=== PATIENT | female | born 1960 | race Caucasian/White ===

== ENCOUNTER 2020-11-28 12:13 | Inpatient (IN) | payer OTHER ==
[~2020-11-28] VITALS: Ht 172.7 cm; Wt 55.9 kg
[2020-11-28] MEDS ORDERED: TRES1INJ SC (13:04)
[2020-11-28] MEDS ORDERED: AMIT100TA PO (13:04)
[2020-11-28] MEDS ORDERED: NS 500 ML IV ONE (13:05)
[2020-11-28] MEDS ORDERED: NS 1,000 ML IV SCH (13:05)
[2020-11-28] MEDS ORDERED: HumuLIN R (REGULAR) INSULIN (NovoLIN R) **100U/ML** PER UNIT IV ONE (13:25)
[2020-11-28] MEDS ORDERED: METOCLOPRAMIDE INJ 10MG/2ML VIAL (J2765 PER 1) IV ONE (13:30)
--- NOTE | 2020-11-28 13:35 | REP ---
INDICATION: vomiting; SOB COMPARISON: None. TECHNIQUE: Frontal view of the chest and abdomen/pelvis with cross-table view of the abdomen FINDINGS: Frontal view of the chest demonstrates no acute cardiopulmonary process. Supine and cross-table lateral views of the abdomen to pelvis demonstrate nonspecific bowel gas pattern without obstruction or perforation. IMPRESSION: Nonspecific bowel gas pattern. <Electronically signed by Randell Rodriguez > 11/28/20 [id number]
[2020-11-28 14:00] LABS: BASO # 0.1 10^3/uL (0.0-0.2); BASO % 0.2 % (0.0-1.0); HEMATOCRIT 38.6 % (36.0-47.0); HEMOGLOBIN 12.8 g/dl (12.0-15.5); LYMPH # 1.7 10^3/uL (1.5-5.0); LYMPH % 5.7 % (24.0-44.0); MEAN CORPUSCULAR HEMOGLOBIN 29.4 pg (27.0-33.0); MEAN CORPUSCULAR HGB CONC 33.2 g/dl (32.0-36.5); MEAN CORPUSCULAR VOLUME 88.5 fl (80.0-96.0); MONO # 1.8 10^3/uL (0.0-0.8); MONO % 6.1 % (2.0-8.0); NEUTROPHILS # 25.7 10^3/uL (1.5-8.5); NEUTROPHILS % 86.9 % (36.0-66.0); PLATELET COUNT, AUTOMATED 302 10^3/uL (150-450); RED BLOOD COUNT 4.36 10^6/uL (4.00-5.40); WHITE BLOOD COUNT 29.6 10^3/uL (4.0-10.0)
[2020-11-28 14:07] LABS: ABG BASE EXCESS -16.5 (-2.0-2.0); ABG HCO3 8.5 MEQ/L (22.0-26.0); ABG O2 SATURATION 98.1 % (95.0-99.0); ABG PARTIAL PRESSURE O2 120.2 mmHg (75.0-100.0); ABG STANDARD HCO3 12.1 MEQ/L (22.0-26.0); ABG TOTAL CO2 9.1 MEQ/L (22.0-29.0)
[2020-11-28 14:10] LABS: ABG pH (ARTERIAL) 7.249 UNITS (7.350-7.450)
[2020-11-28 14:11] LABS: ABG PARTIAL PRESSURE CO2 19.9 mmHg (35.0-45.0)
[2020-11-28 14:22] LABS: HEMOGLOBIN A1c 12.5 %
[2020-11-28 14:26] LABS: OSMOLALITY SERUM 349 MOSM/KG (275-295)
[2020-11-28 14:45] LABS: ACETONE/KETONE > 46.00 MG/DL (<2.81); ALBUMIN 3.8 GM/DL (3.2-5.2); ALT/SGPT 20 U/L (12-78); BILIRUBIN,DIRECT 0.1 MG/DL (0.0-0.2); BILIRUBIN,TOTAL 0.6 MG/DL (0.2-1.0); BLOOD UREA NITROGEN 50 MG/DL (7-18); CALCIUM LEVEL 9.3 MG/DL (8.5-10.1); CARBON DIOXIDE LEVEL 13 MEQ/L (21-32); CHLORIDE LEVEL 98 MEQ/L (98-107); CPK CREATINE PHOSPHOKINASE 54 U/L (26-192); CREATININE FOR GFR 1.26 MG/DL (0.55-1.30); ETHYL ALCOHOL (ETHANOL) < 0.003 % (0.000-0.010); GLOMERULAR FILTRATION RATE 46.4 (>51); GLUCOSE, FASTING 568 MG/DL (70-100); LIPASE 345 U/L (73-393); MAGNESIUM LEVEL 2.5 MG/DL (1.8-2.4); MB/CK RELATIVE INDEX 1.85 (< OR =4); PHOSPHORUS LEVEL 4.7 MG/DL (2.5-4.9); POTASSIUM SERUM 4.9 MEQ/L (3.5-5.1); SODIUM LEVEL 137 MEQ/L (136-145); TOTAL PROTEIN 7.7 GM/DL (6.4-8.2); TROPONIN I < 0.02 NG/ML (< 0.10)
[2020-11-28 14:54] LABS: RSV AMPLIFICATION NEGATIVE (NEGATIVE)
[2020-11-28] MEDS ORDERED: LEVO250T12 PO (15:49)
[2020-11-28] MEDS ORDERED: PRED10TA2 PO (15:49)
[2020-11-28] MEDS ORDERED: INSULIN REGULAR IN 0.9 % NACL 100 UNIT in IV 1 EA IV SCH ×4 (16:00→23:30)
[2020-11-28] MEDS ORDERED: INSULIN IV RATE CHANGE DOCUMENTATION ML/HR XX SCH (16:00)
[2020-11-28] MEDS ORDERED: ALBUTEROL 90 MCG/ACT 8GM HFA INHALER INH PRN ×2 (16:30→18:37)
[2020-11-28 16:40] LABS: AMPHETAMINES LEVEL URINE NEGATIVE (NEGATIVE); BARBITURATES URINE NEGATIVE (NEGATIVE); BENZODIAZEPINES URINE NEGATIVE (NEGATIVE); CANNABINOIDS URINE NEGATIVE (NEGATIVE); COCAINE METABOLITE URINE NEGATIVE (NEGATIVE); METHADONE URINE NEGATIVE (NEGATIVE); OPIATES URINE NEGATIVE (NEGATIVE); PHENCYCLIDINE URINE NEGATIVE (NEGATIVE)
--- OUTSIDE RECORDS SUMMARY | 2020-11-28 16:54 | CCD ---
Author Author [facility] Organization [facility] Address Unknown Phone Unavailable Care Team Providers Care Assessor Name Role Phone Susanne Porter MD Unavailable Unavailable Susanne Porter MD Unavailable Unavailable Susanne Porter MD Unavailable Unavailable Susanne Porter MD Unavailable Unavailable Susanne Porter MD Unavailable Unavailable Susanne Porter MD Unavailable Unavailable Susanne Porter MD Unavailable Unavailable Susanne Porter MD Unavailable Unavailable Susanne Porter MD Unavailable Unavailable Susanne Porter MD Unavailable Unavailable Susanne Porter MD Unavailable Unavailable Susanne Porter MD Unavailable Unavailable Susanne Porter MD Unavailable Unavailable Susanne Porter MD Unavailable Unavailable Susanne Porter MD Unavailable Unavailable Susanne Porter MD Unavailable Unavailable Susanne Porter MD Unavailable Unavailable Susanne Porter MD Unavailable Unavailable Susanne Porter MD Unavailable Unavailable Susanne Porter MD Unavailable Unavailable Susanne Porter MD Unavailable Unavailable Susanne Porter MD Unavailable Unavailable Susanne Porter MD Unavailable Unavailable Susanne Proter MD Unavailable Unavailable Susanne Porter MD Unavailable Unavailable Susanne Porter MD Unavailable Unavailable Susanne Porter MD Unavailable Unavailable Susanne Porter MD Unavailable Unavailable Susanne Porter MD Unavailable Unavailable Susanne Porter MD Unavailable Unavailable Susanne Porter MD Unavailable Unavailable Susanne Porter MD Unavailable Unavailable Susanne Porter MD Unavailable Unavailable Susanne Porter MD Unavailable Unavailable Susanne Porter MD Unavailable Unavailable Susanne Porter MD Unavailable Unavailable Susanne Porter MD Unavailable Unavailable Susanne Porter MD Unavailable Unavailable Susanne Porter MD Unavailable Unavailable Susanne Porter MD Unavailable Unavailable Susanne Porter MD Unavailable Unavailable Susanne Porter MD Unavailable Unavailable CharlotteSusanne MD Unavailable Unavailable CharlotteSusanne MD Unavailable Unavailable Susanne Porter MD Unavailable Unavailable Susanne Porter MD Unavailable Unavailable Susanne Porter MD Unavailable Unavailable Susanne Porter MD Unavailable Unavailable Susanne Porter MD Unavailable Unavailable Susanne Porter MD Unavailable Unavailable Susanne Porter MD Unavailable Unavailable Susanne Porter MD Unavailable Unavailable Susanne Porter MD Unavailable Unavailable Martínez Pringle RN MS TESTING MACHINE OPERATOR CDE Unavailable Unavailabl Martínez Mendoza RN MS TESTING MACHINE OPERATOR CDE Unavailable Unavailabl Martínez Mendoza RN MS TESTING MACHINE OPERATOR CDE Unavailable Unavailabl Martínez Mendoza RN MS TESTING MACHINE OPERATOR CDE Unavailable Unavailabl Martínez Mendoza RN MS TESTING MACHINE OPERATOR CDE Unavailable Unavailabl Martínez Mendoza RN MS TESTING MACHINE OPERATOR CDE Unavailable Unavailabl Martínez Mendoza RN MS TESTING MACHINE OPERATOR CDE Unavailable Unavailabl Martínez Mendoza RN MS TESTING MACHINE OPERATOR CDE Unavailable Unavailabl Martínez Mendzoa RN MS TESTING MACHINE OPERATOR CDE Unavailable Unavailabl Martínez Mendoza RN MS TESTING MACHINE OPERATOR CDE Unavailable Unavailabl Martíenz Mendoza RN MS TESTING MACHINE OPERATOR CDE Unavailable Unavailabl Martínez Mendoza RN MS TESTING MACHINE OPERATOR CDE Unavailable Unavailabl Martínez Mendoza RN MS TESTING MACHINE OPERATOR CDE Unavailable Unavailabl Martínez Mendoza RN MS TESTING MACHINE OPERATOR CDE Unavailable Unavailabl Martínez Mendoza RN MS TESTING MACHINE OPERATOR CDE Unavailable Unavailabl Martínez Mendoza RN MS TESTING MACHINE OPERATOR CDE Unavailable Unavailabl Martínez Mendoza RN MS TESTING MACHINE OPERATOR CDE Unavailable Unavailabl Martínez Mendoza RN MS TESTING MACHINE OPERATOR CDE Unavailable Unavailabl Martínez Mendoza RN MS TESTING MACHINE OPERATOR CDE Unavailable Unavailabl Martínez Mendoza RN MS TESTING MACHINE OPERATOR CDE Unavailable Unavailabl susanne Pringle, Martínez Luna RN MS TESTING MACHINE OPERATOR CDE Unavailable Unavailabl susanne Pringle, Martínez Luna RN MS TESTING MACHINE OPERATOR CDE Unavailable Unavailabl susanne Pringle, Martínez Luna RN MS TESTING MACHINE OPERATOR CDE Unavailable Unavailabl e Pino, Martínez Luna RN MS TESTING MACHINE OPERATOR CDE Unavailable Unavailabl e Pino, Martínez Luna RN MS TESTING MACHINE OPERATOR CDE Unavailable Unavailabl e Pino, Martínez Luna RN MS TESTING MACHINE OPERATOR CDE Unavailable Unavailabl e Pino, Martínez Luna RN MS TESTING MACHINE OPERATOR CDE Unavailable Unavailabl e Pino, Martínez Luna RN MS TESTING MACHINE OPERATOR CDE Unavailable Unavailabl e Pino, Martínez Luna RN MS TESTING MACHINE OPERATOR CDE Unavailable Unavailabl e Martínez Pringle RN MS TESTING MACHINE OPERATOR CDE Unavailable Unavailabl e Martínez Pringle RN MS TESTING MACHINE OPERATOR CDE Unavailable Unavailabl e Martínez Pringle RN MS TESTING MACHINE OPERATOR CDE Unavailable Unavailabl e Pino, Martínez Luna RN MS TESTING MACHINE OPERATOR CDE Unavailable Unavailabl e Martínez Pringle RN MS TESTING MACHINE OPERATOR CDE Unavailable Unavailabl e Martínez Pringle RN MS TESTING MACHINE OPERATOR CDE Unavailable Unavailabl susanne Pringle, Martínez Luna RN MS TESTING MACHINE OPERATOR CDE Unavailable Unavailabl susanne Pringle, Martínez Luna RN MS TESTING MACHINE OPERATOR CDE Unavailable Unavailabl Martínez Mendoza RN MS TESTING MACHINE OPERATOR CDE Unavailable Unavailabl Martínez Mendoza RN MS TESTING MACHINE OPERATOR CDE Unavailable Unavailabl Martínez Mendoza RN MS TESTING MACHINE OPERATOR CDE Unavailable Unavailabl Martínez Mendoza RN MS TESTING MACHINE OPERATOR CDE Unavailable Unavailabl Martínez Mendoza RN MS TESTING MACHINE OPERATOR CDE Unavailable Unavailabl Martínez eMndoza RN MS TESTING MACHINE OPERATOR CDE Unavailable Unavailabl Martínez Mendoza RN MS TESTING MACHINE OPERATOR CDE Unavailable Unavailabl Martínez Mendoza RN MS TESTING MACHINE OPERATOR CDE Unavailable Unavailabl Martínez Mendoza RN MS TESTING MACHINE OPERATOR CDE Unavailable Unavailabl Martínez Mendoza RN MS TESTING MACHINE OPERATOR CDE Unavailable Unavailabl Martínez Mendoza RN MS TESTING MACHINE OPERATOR CDE Unavailable Unavailabl Martínez Mendoza RN MS TESTING MACHINE OPERATOR CDE Unavailable Unavailabl Martínez Mendoza RN MS TESTING MACHINE OPERATOR CDE Unavailable Unavailabl susanne Pringle, Martínez Luna RN MS TESTING MACHINE OPERATOR CDE Unavailable Unavailabl susanne Pino, Martínez Luna RN MS TESTING MACHINE OPERATOR CDE Unavailable Unavailabl susanne Pringle, Martínez Cheryl RN MS TESTING MACHINE OPERATOR CDE Unavailable Unavailabl susanne Pino, Martínez Molinala RN MS TESTING MACHINE OPERATOR CDE Unavailable Unavailabl susanne Pringle, Martínez Luna RN MS TESTING MACHINE OPERATOR CDE Unavailable Unavailabl susanne Pringle, Martínez Luna RN MS TESTING MACHINE OPERATOR CDE Unavailable Unavailabl susanne Pino, Martínez Molinala RN MS TESTING MACHINE OPERATOR CDE Unavailable Unavailabl susanne Pringle, Martínez Molinala RN MS TESTING MACHINE OPERATOR CDE Unavailable Unavailabl susanne Pringle, Martínez Luna RN MS TESTING MACHINE OPERATOR CDE Unavailable Unavailabl susanne Pringle, Martínez Luna RN MS TESTING MACHINE OPERATOR CDE Unavailable Unavailabl e Susanne Porter MD Unavailable Unavailable CharlotteSusanne MD Unavailable Unavailable CharlotteSusanne MD Unavailable Unavailable CharlotteSusanne MD Unavailable Unavailable CharlotteSusanne MD Unavailable Unavailable CharlotteSusanne MD Unavailable Unavailable CharlotteSusanne MD Unavailable Unavailable CharlotteSusanne MD Unavailable Unavailable CharlotteSusanne MD Unavailable Unavailable CharlotteSusanne MD Unavailable Unavailable CharlotteSusanne MD Unavailable Unavailable CharlotteSusanne MD Unavailable Unavailable CharlotteSusanne MD Unavailable Unavailable CharlotteSusanne MD Unavailable Unavailable CharlotteSusanne MD Unavailable Unavailable CharlotteSusanne MD Unavailable Unavailable CharlotteSusanne MD Unavailable Unavailable CharlotteSusanne MD Unavailable Unavailable CharlotteSusanne MD Unavailable Unavailable CharlotteSusanne MD Unavailable Unavailable CharlotteSusanne MD Unavailable Unavailable CharlotteSusanne MD Unavailable Unavailable CharlotteSusanne MD Unavailable Unavailable CharlotteSusanne MD Unavailable Unavailable CharlotteSusanne MD Unavailable Unavailable CharlotteSusanne MD Unavailable Unavailable Susanne Porter MD Unavailable Unavailable CharlotteSusanne MD Unavailable Unavailable Susanne Porter MD Unavailable Unavailable CharlotteSusanne MD Unavailable Unavailable CharlotteSusanne MD Unavailable Unavailable Charlotte, E Rebecca MD Unavailable Unavailable Charlotte, E Rebecca MD Unavailable Unavailable Charlotte, E Rebecca MD Unavailable Unavailable Charlotte, E Rebecca MD Unavailable Unavailable Charlotte, E Rebecca MD Unavailable Unavailable Charlotte, E Rebecca MD Unavailable Unavailable Charlotte, E Rebecca MD Unavailable Unavailable Charlotte, E Rebecca MD Unavailable Unavailable Charlotte, E Rebecca MD Unavailable Unavailable Charlotte, E Rebecca MD Unavailable Unavailable Charlotte, E Rebecca MD Unavailable Unavailable Charlotte, E Rebecca MD Unavailable Unavailable Charlotte, E Rebecca MD Unavailable Unavailable Charlotte, E Erbecca MD Unavailable Unavailable Charlotte, E Rebecca MD Unavailable Unavailable Charlotte, E Rebecca MD Unavailable Unavailable Charlotte, E Rebecca MD Unavailable Unavailable Charlotte, E Rebecca MD Unavailable Unavailable Charlotte, E Rbeecca MD Unavailable Unavailable Charlotte, E Rebecca MD Unavailable Unavailable Charlotte, E Rebecca MD Unavailable Unavailable Charlotte, E Rebecca MD Unavailable Unavailable Remi, D Dillon PA Unavailable Unavailable Remi, D Dillon PA Unavailable Unavailable Remi, D Dillon PA Unavailable Unavailable Remi, D Dillon PA Unavailable Unavailable Remi, D Dillon PA Unavailable Unavailable Remi, D Dillon PA Unavailable Unavailable Remi, D Dillon PA Unavailable Unavailable Remi, D Dillon PA Unavailable Unavailable Remi, D Dillon PA Unavailable Unavailable Remi, D Dillon PA Unavailable Unavailable Remi, D Dillon PA Unavailable Unavailable Remi, D Dillon PA Unavailable Unavailable Remi, D Dillon PA Unavailable Unavailable Remi, D Dillon PA Unavailable Unavailable Remi, D Dillon PA Unavailable Unavailable Remi, D Dillon PA Unavailable Unavailable Remi, D Dillon PA Unavailable Unavailable Remi, D Dillon PA Unavailable Unavailable Remi, D Dillon PA Unavailable Unavailable Remi, D Dillon PA Unavailable Unavailable Remi, D Dillon PA Unavailable Unavailable Remi, D Dillon PA Unavailable Unavailable Remi, D Dillon PA Unavailable Unavailable Remi, D Dillon PA Unavailable Unavailable Remi, D Dillon PA Unavailable Unavailable Re-disclosure Warning The records that you are about to access may contain information from federally-assisted alcohol or drug abuse programs. If such information is present, then the following federally mandated warning applies: This information has been disclosed to you from records protected by federal confidentiality rules (42 CFR part 2). The federal rules prohibit you from making any further disclosure of this information unless further disclosure is expressly permitted by the written consent of the person to whom it pertains or as otherwise permitted by 42 CFR part 2. A general authorization for the release of medical or other information is NOT sufficient for this purpose. The Federal rules restrict any use of the information to criminally investigate or prosecute any alcohol or drug abuse patient.The records that you are about to access may contain highly sensitive health information, the redisclosure of which is protected by Article 27-F of the [facility] Public Health law. If you continue you may have access to information: Regarding HIV / AIDS; Provided by facilities licensed or operated by the [facility] Office of Mental Health; or Provided by the [facility] Office for People With Developmental Disabilities. If such information is present, then the following [facility] mandated warning applies: This information has been disclosed to you from confidential records which are protected by state law. State law prohibits you from making any further disclosure of this information without the specific written consent of the person to whom it pertains, or as otherwise permitted by law. Any unauthorized further disclosure in violation of state law may result in a fine or mcc sentence or both. A general authorization for the release of medical or other information is NOT sufficient authorization for further disc losure. Allergies and Adverse Reactions Type Description Substance Reaction Status Data Source(s ) Allergy to substance No Known Allergies No known allergies (situation ) [facility]) Allergy to substance No Known Allergies No known allergies (situation ) [facility]) Drug Allergy Drug Allergy NKDA [facility] ([facility]) Encounters Encounter Providers Location Date Indications Data Source(s ) Outpatient<td ID="encounterTypeDescripti onID0">Flu Shot Adult</td><td>D[facility] Khalil [facility]</td[facility]td[facility]/29/[facility]</td><td>11:06AM</td><td>11:18AM</td><td></td> [facility] 11:06:00 A M EDT - 11/29/2019 11:18:24 AM EDT CHRISTIANO ([facility]) Outpatient Attender: Cheryl Pringle RN MS TESTING MACHINE OPERATOR CDE [facility] 10/25/2019 02:20:00 PM EDT ELIZABETH [facility] Out[facility] Attender: Rebecca Porter MD 10/05/2019 05:44:00 PM EDT PAP [facility] Outpatient<td ID="encounterTypeDescripti onID1">ANNUAL PE-followup exam/</td><td>Rebecca Porter MD</td><td>[facility], [facility]</td><td>10/05/2019</td><td>2:32PM</td><td>3:16PM</td><td><content ID="encounterDiagnosisID1-0">Routine Gynecological Exam</content>, <content ID="encounterDiagnosisID1-1">Nicotine-related Disorders</content>, <content ID="encounterDiagnosisID1-2">Anorexia Nervosa</content>, <content ID="encounterDiagnosisID1-3">Routine History and Physical Adult (18 - 64 Yrs)</content>, <content ID="encounterDiagnosisID1-4">Diabetes Mellitus Type 1 - Uncontrolled</content>, <content ID="encounterDiagnosisID1-5">Diabetes Mellitus Diabetic Peripheral Neuropathy Type 1</content>, <content ID="encounterDiagnosisID1-6">Discharge of Nipple</content>, <content ID="encounterDiagnosisID1-7">Panic Disorder Without Agoraphobia with Panic Attacks</content>, <content ID="encounterDiagnosisID1-8">Herpes Simplex Type I</content></td> Attender: Rebecca Porter MD [facility] 10/05/2019 02:32:00 PM EDT - 10/05/2019 03:16:00 PM EDT Herpes Simplex Type IRoutine History and Physical Adult (18 - 64 Yrs)Nicotine-related DisordersRoutine Gynecological ExamHerpes Simplex Type IRoutine History and Physical Adult (18 - 64 Yrs)Nicotine-related DisordersRoutine Gynecological Exam Panic Disorder Without Agoraphobia with Panic AttacksPanic Disorder Without Agoraphobia with Panic AttacksDischarge of NippleDischarge of NippleDiabetes Mellitus Type 1 - UncontrolledDiabetes Mellitus Type 1 - UncontrolledDiabetes Mellitus Diabetic Peripheral Neuropathy Type 1Anorexia NervosaDiabetes Mellitus Diabetic Peripheral Neuropathy Type 1Anorexia Nervosa SHARON ([facility]) Herpes Simplex Type I Routine History and Physical Adult (18 - 64 Yrs) Nicotine-related Disorders Routine Gynecological Exam Herpes Simplex Type I Routine History and Physical Adult (18 - 64 Yrs) Nicotine-related Disorders Routine Gynecological Exam Panic Disorder Without Agoraphobia with Panic Attacks Panic Disorder Without Agoraphobia with Panic Attacks Discharge of Nipple Discharge of Nipple Diabetes Mellitus Type 1 - Uncontrolled Diabetes Mellitus Type 1 - Uncontrolled Diabetes Mellitus Diabetic Peripheral Ne uropathy Type 1 Anorexia Nervosa Diabetes Mellitus Diabetic Peripheral Ne uropathy Type 1 Anorexia Nervosa Immunizations Vaccine Date Status Description Data Source(s) COVID-19 VACCINE Moderna 06/20/2020 12:00:00 AM EDT completed [facility] Vaccine Series Complete: YESThis Data wa s Submitted to [facility] [employer]. COVID-19 VACCINE Moderna 05/23/2020 12:00:00 AM EDT completed [facility]SIIS Vaccine Series Complete: NOThis Data was Submitted to [facility] [employer]. IIV3. This is one of two codes replacing CVX 15, which is being retired. 11/29/2019 12:20:00 PM EDT completed <td ID="Otwtavqeiqnsr-Qivzytihkhr-OJ3">Influenza, seasonal, injectable</td><td ID="ImmunizationDose-0">1</td><td>11/29/2019</td><td ID="Bewtydmlpyqgf-VfyxgIual-KY7">Left Deltoid</td><td></td><td ID="Hgtcxthyzidwc-Fbsrmb-WX5">Complete (Administered)</td><td>[facility]</td><td ID="Anzqwlwbrnfxp-Yfcge-Bcuy-Comment-ID0"></td> [facility]ARON ([facility]) Medications Medication Brand Name Start Date Product Form Dose Route Admi nistrative Instructions Pharmacy Instructions Status Indications Reaction Description Data Source(s) Trazodone Hydrochloride 100 MG Oral Tablet traZODone H Cl 100 MG Oral Tablet traZODone HCl 100 MG Oral Tablet 11/11/2019 12:00:00 AM EDT active trazodone hydrochloride 100 MG Oral Tablet CHRISTIANO ([facility]) Freestyle Elvis 14 Day/Sensor/Flash Monitoring System 10/25/2019 12:00:00 AM EDT active [facility] ([facility]) Freestyle Elvis 14 Day/[place]/Flash Monitoring System 10/25/2019 12:00:00 AM EDT active [facility] ([facility]) Baqsimi Two Pack Baqsimi Two Pack 10/25/2019 12:00:00 AM EDT active [facility]) pregabalin 50 MG Oral Capsule [Lyrica] Lyrica 50 MG Or al Capsule Lyrica 50 MG Oral Capsule 10/05/2019 12:00:00 AM EDT activ e pregabalin 50 MG Oral Capsule [Lyrica] SHARON ([facility]) Acyclovir 400 MG Oral Tablet Acyclovir 400 MG Oral Tablet 12:00:00 AM EDT 1 active acyclovir 400 MG Oral Tablet SHARON ([facility]) Trazodone Hydrochloride 100 MG Oral Tablet traZODone H Cl 100 MG Oral Tablet traZODone HCl 100 MG Oral Tablet 08/12/2019 12:00:00 AM EDT 1 aborted trazodone hydrochloride 100 MG Oral Tablet SHARON ([facility]) pregabalin 50 MG Oral Capsule [Lyrica] Lyrica 50 MG Or al Capsule Lyrica 50 MG Oral Capsule 04/27/2019 12:00:00 AM EDT abort ed pregabalin 50 MG Oral Capsule [Lyrica] SHARON ([facility]) atorvastatin 10 MG Oral Tablet Atorvastatin Calcium 10 MG Oral Tablet Atorvastatin Calcium 10 MG Oral Tablet 03/30/2019 12:00:00 AM EST active [facility]vastatin 10 MG [facility] Insurance Providers Payer name Policy type / Coverage type Policy ID Covered constitution party ID Covered constitution party's relationship to liu Policy Liu [facility] 0 [id number] Self 0 MVP [id number] Self [id number] [facility] Other 0 [id number] Self 0 [employer] [place] Other 0 [id number] Self 0 [employer] Health Plan [facility] Other 0 [id number] Self 0 [employer] P [id number] S [id number] RENETTA VIERA PHY [id number] SP [id number] [employer] [id number] SP [id number] Problems, Conditions, and Diagnoses Code Display Name Description Problem Type Effective Dates Data Source(s) 305.1 Nicotine-related Disorders Nicotine-related Disorders Problem 10/05/2019 05:16:00 PM [facility] ([facility]) 305.1 Nicotine-related Disorders Nicotine-related Disorders Problem 10/05/2019 05:16:00 PM [facility] ([facility]) Surgeries/Procedures Procedure Description Date Indications Data Source(s) Venipuncture (routine) Venipuncture (routine) 10/05/2019 12:00:00 A M Libby SHARON ([facility]) HgbA1C HgbA1C 10/05/2019 12:00:00 AM Libby MCCORMACK ([facility]) Cervical or vaginal cancer screening; pelvic and clini chance breast examination pelvic exam & Breast check 10/05/2019 12:00:[address] [facility] ([facility]) Screening papanicolaou smear; obtaining, preparing and conveyance of cervical or vaginal smear to laboratory pap smear colllection 10/05/2019 12:00:00 AM [facility] ([facility]) Brief Emotional Behavior Assessment (Distinct Seperate service-same day) Brief Emotional Behavior Assessment (Distinct Seperate service-same day) 10/05/2019 12:00:00 AM [facility] ([facility]) CMP-Complete Metabolic Profile CMP-Complete Metabolic Profil e 10/05/2019 12:00:00 AM [facility] ([facility]) Brief Emotional Behavior Assessment Brief Emotional Behavior Assessment 10/05/2019 12:00:00 AM [facility] ([facility]) Screening papanicolaou smear; obtaining, preparing and conveyance of cervical or vaginal smear to laboratory pap smear colllection 10/05/2019 12:00:00 AM [facility] ([facility]) Cervical or vaginal cancer screening; pelvic and clini chance breast examination pelvic exam & Breast check 10/05/2019 12:00:00 AM EDT LAFAYETTEW AY ([facility]) Results ID Date Data Source [id number] 10/05/2019 03:21:00 PM EDT SHARON ([facility]) Name Value Range Interpretation Code Description Data Candis rce(s) Supporting Document(s) Hemoglobin A1c/Hemoglobin.total in Blood 13.4 na Above high normal Hgba1c SHARON ([facility]) Note: Responsible Observer: KM ID Date Data Source [id number] 10/05/2019 03:21:00 PM EDT SHARON ([facility]) Name Value Range Interpretation Code Description Data Candis rce(s) Supporting Document(s) AST 21 IU/L AST SHARON ([facility]) Note: Responsible Observer: KM Alkaline Phos 111 IU/L Alkaline Phos SHARON ([facility]) Note: Responsible Observer: KM Albumin [Mass/volume] in Blood by Bromocresol purple ( BCP) dye binding method 4.5 g/dl Albumin SHARON ([facility] Note: Responsible Observer: KM ALT 18 IU/L ALT SHARON ([facility]) Note: Responsible Observer: KM Chloride [Moles/volume] in Serum, Plasma or Blood 101 mmol/L Chloride SHARON ([facility]) Note: Responsible Observer: KM Calcium [Moles/volume] in Urine collected for unspecified durati on 10.1 mg/dl Calcium SHARON ([facility]) Note: Responsible Observer: KM Urea nitrogen [Moles/volume] in Blood 14 mg/dl Urea Nitrogen SHARON ([facility]) Note: Responsible Observer: KM EGFR - Non AF AM > 60 N/A EGFR - Non AF AM [facility] ([facility]) Note: Responsible Observer: KM Creatinine [Moles/volume] in Vitreous fluid 0.6 mg/dl Creatinine SHARON ([facility]) Note: Responsible Observer: KM EGFR - AfricanAm > 60 N/A EGFR - AfricanAm [facility] ([facility]) Note: Responsible Observer: KM CO2 32 mmol/L Above high normal CO2 SHARON ([facility]) Note: Responsible Observer: KM Sodium [Moles/volume] in Serum, Plasma or Blood 136 mmol/L Sodium SHARON ([facility]) Note: Responsible Observer: KM Potassium [Mass/volume] in Blood 3.7 mmol/L Pot assium SHARON ([facility]) Note: Responsible Observer: KM Glucose [Mass/volume] in Urine collected for unspecified duratio n 64 mg/dl Below low normal Glucose SHARON ([facility]) Note: Responsible Observer: KM Total Bilirubin 0.4 mg/dl [facility] ([facility]) Note: Responsible Observer: KM Total Protein 6.9 g/dl Total Protein SHARON ([facility]) Note: Responsible Observer: KM ID Date Data Source [id number] 10/18/2019 10:47:00 AM EDT [place] [id number] Technique: BRUSH-SPA TULALAST MENSTRUAL PERIOD: [id number] Site: CERVIX Name Value Range Interpretation Code Description Data Candis rce(s) Supporting Document(s) Microscopic observation [Identifier] in Cervix by Cyto stain.thin pre p [facility] ID Date Data Source [id number] 10/05/2019 03:00:00 PM EDT SHARON ([facility]) Name Value Range Interpretation Code Description Data Candis rce(s) Supporting Document(s) Reported Physicians See Note Reported Physici jordan SHARON ([facility]) Note: Reported Physicians:Ordering: Rebecca SolomonAttending: Rebecca Porter ID Date Data Source [id number] 10/05/2019 03:00:00 PM EDT SHARON ([facility]) Name Value Range Interpretation Code Description Data Candis rce(s) Supporting Document(s) Microscopic observation [Identifier] in Cervix by Cyto stain .thin prep See Note Thin Prep Cvx SHARON ([facility]) Note: See scanned reportSee scanned repo rtLSee scanned reportSee scanned reportLSee scanned reportResponsible Observer: PAP/HPV -Alie + PAP w HPV- Genotype if Positive [phone] ([facility]) Notes [TIMP] See Note NOTES CHRISTIANO ([facility]) Note: [id number] Technique: BRU SH-SPATULALAST MENSTRUAL PERIOD: [id number] Site: CERVIX Procedure Social History Code Duration Value Status Description Data Source(s ) Smoking 10/05/2019 05:25:38 PM EDT Smokes tobacco daily (findi ng) completed Smokes tobacco daily (finding) SHARON ([facility]) Vital Signs ID Date Data Source UNK Name Value Range Interpretation Code Description Data Source(s) Body height 68.00 [in_i] 68.00 [in_i] [facility] 5'8" Body weight 128.25 [lb_av] 128.25 [lb_av] MEDEN T ([facility]) Body mass index (BMI) [Ratio] 19.5 kg/m2 19.5 k g/m2 [facility] ([facility]) Systolic blood pressure 116 mm[Hg] 116 mm[Hg] [facility] Diastolic blood pressure 66 mm[Hg] 66 mm[Hg] [facility] ([facility]) Heart rate 100 /min 100 /min [facility] ([facility]) Body temperature 97.7 [degF] 97.7 [degF] [facility] ([facility]) Body temperature 36.5 Marimar 36.5 Marimar [facility] ( [facility]) Oxygen saturation in Arterial blood by Pulse oximetry 96 % 96 % [facility] ([facility]) Systolic blood pressure 92 mm[Hg] 92 mm[Hg] [facility] Diastolic blood pressure 62 mm[Hg] 62 mm[Hg] SHARON ([facility]) Respiratory rate 18 /min 18 /min SHARON ([facility]) Body weight 133 [lb_av] 133 [lb_av] SHARON ([facility]) Patient Treatment Plan of Care Planned Activity Planned Date Details Description Data Source (s) Trazodone Hydrochloride 100 MG Oral Tablet 11/11/2019 12:00:00 AM E DT SHARON ([facility]) Acyclovir 400 MG Oral Tablet 10/05/2019 12:00:00 AM EDT SHARON ([facility]) pregabalin 50 MG Oral Capsule [Lyrica] 10/05/2019 12:00:00 AM EDT SHARON ([facility]) Trazodone Hydrochloride 100 MG Oral Tablet 08/12/2019 12:00:00 AM E DT SHARON ([facility]) pregabalin 50 MG Oral Capsule [Lyrica] 04/27/2019 12:00:00 AM EDT SHARON ([facility]) atorvastatin 10 MG Oral Tablet 03/30/2019 12:00:00 AM EST SHARON ([facility])
[2020-11-28] MEDS: KCL 20MEQ in NS 1000ML 1,000 ML IV SCH ×2 (17:58→23:53)
--- NOTE | 2020-11-28 18:05 | HPEPDOC ---
[facility] Medical History & Physical Date of Admission Nov 28, 2020 Date of Service: Nov 28, 2020 Attending Physician: KRISTIN CHAN MD History and Physical CHIEF COMPLAINT: Type 1 diabetic presenting with N/V since last night, ran out of insulin 4-5days ago, "had not yet done something about it." HISTORY OF PRESENT ILLNESS: 60 yo W with a history of DM1, anxiety and patient reported history of anorexia, who came into the ED reporting profound nausea and emesis since last night, i/s/o of having run out of her insulin almost 5d ago and was still to let her PCP know and seek to replenish it. She denies any history of bloody emesis, diarrhea, bright red blood per rectum or melena, fever, chills, chest pain, pleurisy, palpitations, fever, chills, congestion, increased cough or rhinorr hea. In the ED, she is hemodynamically stable. Labs show leukocytosis to 29.6, Hgb 12.8, platelets 302, glucose 568, beta hydroxybutyrate >46, bicarb of 13, pH 7.25 on ABG, UA with ketone and 3+ glucose, and osmolality of 349. Lactic acid was 1.9, Na 137, K 4.7, BUN 50, Cr 1.26. She was given 1.5L NS bolus, 5u regular insulin bolus and started on an insulin gtt for DKA. Medicine is now admitting for DKA in the setting of medication non-compliance. PAST MEDICAL HISTORY: DM1 Anxiety Patient reported history of anorexia Nicotine addiction PAST SURGICAL HISTORY: L breast lumpectomy Hysterectomy SOCIAL HISTORY: Cigarette smoker, 1/2 ppd No alcohol No illicit drug use FAMILY HISTORY: ALLERGIES: Please see below. REVIEW OF SYSTEMS: 10 point ROS was completed and all pertinent positive are noted in the HPI. The rest was otherwise negative. HOME MEDICATIONS: Please see below. PHYSICAL EXAMINATION: VITAL SIGNS: see below GENERAL APPEARANCE: NAD HEENT: NCAT, EOMI, MMM, anicteric CARDIOVASCULAR: RRR, no m/r/g LUNGS: CTAB ABDOMEN: Normoactive bowel sounds, no hepatosplenomegaly, mild tenderness to palpation throughout MUSCULOSKELETAL: 5/5 strength throughout with full range of motion EXTREMITIES: WWP, 2+ DP pulses, no LE edema NEUROLOGICAL: CN3-12 intact, grossly nonfocal examination PSYCHIATRIC: AOx3 LABORATORY DATA: reviewed above. See below. IMAGING: AXR: Frontal view of the chest demonstrates no acute cardiopulmonary process. Supine and cross-table lateral views of the abdomen to pelvis demonstrate nonspecific bowel gas pattern without obstruction or perforation. IMPRESSION: Nonspecific bowel gas pattern. MICROBIOLOGY: Please see below. ASSESSMENT: 60 yo W with a history of DM1, anxiety and patient reported history of anorexia, who came into the ED reporting profound nausea and emesis since last night, i/s/o of having run out of her insulin almost 5d ago who is now being admitted to the ICU for DKA in the setting of medication non-compliance. PLAN: DKA: 2/2 medication having run out and patient did not seek refill -s/p insulin bolus, now on insulin gtt -K20meq in NS at 150cc/hr -Q2H FSBG -Q4H BMP, phos -Q6H osmolality -a1c 12.5, poor control, with evidence of non-compliance -NPO -ICU admission SIRS: leukocytosis, tachycardia -Low suspicion of actual infection, likely reactive leukocytosis i/s/o DKA, will hold antibiotic therapy, UA was bland otherwise, will do CXR and get BCx x 2. Resp panel was negative. -Certainly dehydrated, s/p 1.5L in the ED now on 150cc/hr Dehydration: -Hydration plan with fluids per above High anion gap metabolic acidosis: -2/2 DKA, treating DKA per above, check BMP Q4H -has respiratory alkalosis for compensation HIRO: prerenal i/s/o dehydration and DKA -Has Q4H BMPs while hydrating. If no improvement, will seek further workup DVT ppx: heparin 5000mg Q8H Dispo: ICU, inpatient. Vital Signs Vital Signs Date Time Temp Pulse Resp B/P (MAP) Pulse Ox O2 Delivery O2 Flow Rate FiO2 11/28/20 16:17 98.6 111 20 109/65 (80) 99 11/28/20 12:49 Room Air Laboratory Data Labs 24H Laboratory Tests 2 11/28/20 12:45: Bedside Glucose (Misc Panel) 597*H 11/28/20 13:03: Immature Granulocyte % (Auto) 1.1, Neutrophils (%) (Auto) 86.9H, Lymphocytes (%) (Auto) 5.7L, Monocytes (%) (Auto) 6.1, Eosinophils (%) (Auto) 0.0, Basophils (%) (Auto) 0.2, Neutrophils # (Auto) 25.7H, Lymphocytes # (Auto) 1.7, Monocytes # (Auto) 1.8H, Eosinophils # (Auto) 0.0, Basophils # (Auto) 0.1, Nucleated Red Blood Cells % (auto) 0.0, Anion Gap 26H, Glomerular Filtration Rate 46.4L, Estimated Mean Plasma Glucose 312H, Hemoglobin A1c 12.5, Osmolality 349H, Lactic Acid Level 1.9, Calcium Level 9.3, Phosphorus Level 4.7, Magnesium Level 2.5H, Total Bilirubin 0.6, Direct Bilirubin 0.1, Aspartate Amino Transf (AST/SGOT) 17, Alanine Aminotransferase (ALT/SGPT) 20, Alkaline Phosphatase 116, Total Creatine Kinase 54, Creatine Kinase MB 1.0, Creatine Kinase MB Relative Index 1.85, Troponin I < 0.02, Total Protein 7.7, Albumin 3.8, Albumin/Globulin Ratio 1.0L, Lipase 345, Ethyl Alcohol Level < 0.003, B-Hydroxybutyrate > 46.00H 11/28/20 13:16: Urine Color STRAW, Urine Appearance CLEAR, Urine pH 5.0, Urine Specific [place] 1.020, Urine Protein NEGATIVE, Urine Glucose (UA) 3+H, Urine Ketones 2+H, Urine Blood NEGATIVE, Urine Nitrite NEGATIVE, Urine Bilirubin NEGATIVE, Urine U robilinogen 0.2, Urine Leukocyte Esterase NEGATIVE, Urine WBC (Auto) 0, Urine RBC (Auto) 0, Urine Hyaline Casts (Auto) 4, Urine Bacteria (Auto) NEGATIVE, Urine Squamous Epithelial Cells 0, Urine Mucus (Auto) SMALL, Urine Sperm (Auto) , Urine Opiates Screen NEGATIVE, Urine Methadone Screen NEGATIVE, Urine Barbiturates Screen NEGATIVE, Urine Phencyclidine Screen NEGATIVE, Urine Amphetamines Screen NEGATIVE, Urine Benzodiazepines Screen NEGATIVE, Urine Cocaine Metabolite Screen NEGATIVE, Urine Cannabinoids Screen NEGATIVE 11/28/20 13:44: Coronavirus (COVID-19)(PCR) NEGATIVE, Influenza Type A (RT-PCR) NEGATIVE, Influenza Type B (RT-PCR) NEGATIVE, Respiratory Syncytial Virus (PCR) NEGATIVE 11/28/20 13:56: Blood Gas Bicarbonate Standard 12.1L, Arterial Blood pH 7.249*L, Arterial Blood Partial Pressure CO2 19.9*L, Arterial Blood Partial Pressure O2 120.2H, Arterial Blood Total CO2 9.1L, Arterial Blood HCO3 8.5L, Arterial Blood Base Excess - 16.5L, Arterial Blood Oxygen Saturation 98.1 11/28/20 15:45: Bedside Glucose (Misc Panel) 464H CBC/BMP Laboratory Tests 11/28/20 13:03 Home Medications Miscellaneous Medications Amitriptyline HCl (Amitriptyline HCl) 100 Mg Tablet Insulin Degludec (Tresiba Flextouch U-200) 200 Unit/1 Ml Insuln.pen Allergies Coded Allergies: meperidine (Verified Allergy, Unknown, 11/28/20) UNKNOWN A-FIB/CHADSVASC A-FIB History Current/History of A-Fib/PAF?: No Current PO Anticoag Therapy: No Age/Risk Factor Scoring CHADSVASC: CHADSVASC Response (Comments) Value Age Risk Factor Age < 65 years old 0 Gender Risk Factor Female 1 Hx of CHF No 0 Hx of HTN No 0 Hx of Stroke/TIA/or VTE No 0 Hx of Diabetes No 0 Hx of Vascular Disease No 0 Total 1 Treatment Treatment ordered: NONE Reason Anticoagulant not given: Not indicated/[id number] KRISTIN CHAN MD Nov 28, 2020 17:29
[2020-11-28] MEDS: AMITRIPTYLINE 50 MG TAB PO SCH (21:00)
[2020-11-28] MEDS: ACETAMINOPHEN 650MG ER TAB (TYLENOL ARTHRITIS) PO SCH (22:00)
[2020-11-28] MEDS: HEPARIN SOD (PORCINE) 5000UNITS/ML 1ML VIAL/SYRINGE SC SCH (23:53)
[2020-11-29] VITALS (11 sets, daily range): BP systolic 120–152; BP diastolic 58–90
[2020-11-29] MEDS: INSULIN IV RATE CHANGE DOCUMENTATION ML/HR XX SCH ×4 (00:01→06:40)
[2020-11-29 00:56] LABS: VENOUS BASE EXCESS -7.2 (-2.0-2.0); VENOUS HCO3 17.7 MEQ/L (23.0-27.0); VENOUS O2 SATURATION 81.2 % (60.0-80.0); VENOUS PARTIAL PRESSURE CO2 34.2 mmHg (38.0-50.0); VENOUS PARTIAL PRESSURE O2 50.4 mmHg (30.0-50.0); VENOUS PH 7.333 UNITS (7.330-7.430); VENOUS STANDARD HCO3 18.3 MEQ/L; VENOUS TOTAL CO2 18.8 MEQ/L (24.0-28.0)
[2020-11-29] MEDS: AMITRIPTYLINE 50 MG TAB PO SCH ×2 (01:08→21:00)
[2020-11-29] MEDS: ONDANSETRON 4MG/2ML VIAL IV PRN ×3 (01:34→17:18)
[2020-11-29 01:54] LABS: CREATININE FOR GFR 1.19 MG/DL (0.55-1.30); GLOMERULAR FILTRATION RATE 49.6 (>51); PHOSPHORUS LEVEL 1.8 MG/DL (2.5-4.9); POTASSIUM SERUM 4.1 MEQ/L (3.5-5.1)
[2020-11-29] MEDS: D5W/0.45% SODIUM CHLORIDE 1,000 ML IV SCH ×4 (03:14→22:58)
[2020-11-29] MEDS ORDERED: SODIUM PHOSPHATE INJ 20 MMOL in D5W 250 ML IV ONE (03:30)
[2020-11-29 04:41] LABS: VENOUS BASE EXCESS -1.2 (-2.0-2.0); VENOUS HCO3 22.8 MEQ/L (23.0-27.0); VENOUS O2 SATURATION 98.5 % (60.0-80.0); VENOUS PARTIAL PRESSURE CO2 35.4 mmHg (38.0-50.0); VENOUS PARTIAL PRESSURE O2 114.9 mmHg (30.0-50.0); VENOUS PH 7.426 UNITS (7.330-7.430); VENOUS STANDARD HCO3 23.5 MEQ/L; VENOUS TOTAL CO2 23.8 MEQ/L (24.0-28.0)
[2020-11-29 04:44] LABS: HEMATOCRIT 31.5 % (36.0-47.0); MEAN CORPUSCULAR HEMOGLOBIN 29.2 pg (27.0-33.0); MEAN CORPUSCULAR VOLUME 86.1 fl (80.0-96.0); PLATELET COUNT, AUTOMATED 266 10^3/uL (150-450); RED BLOOD COUNT 3.66 10^6/uL (4.00-5.40); WHITE BLOOD COUNT 22.7 10^3/uL (4.0-10.0)
[2020-11-29 04:55] LABS: HEMOGLOBIN 10.7 g/dl (12.0-15.5)
[2020-11-29 05:15] LABS: ACETONE/KETONE 11.91 MG/DL (<2.81); CALCIUM LEVEL 8.5 MG/DL (8.5-10.1); CREATININE FOR GFR 1.06 MG/DL (0.55-1.30); GLOMERULAR FILTRATION RATE 56.7 (>51); MAGNESIUM LEVEL 2.2 MG/DL (1.8-2.4); PHOSPHORUS LEVEL 2.1 MG/DL (2.5-4.9); POTASSIUM SERUM 4.1 MEQ/L (3.5-5.1)
[2020-11-29] MEDS: ACETAMINOPHEN 650MG ER TAB (TYLENOL ARTHRITIS) PO SCH ×5 (05:42→22:11)
[2020-11-29] MEDS: HEPARIN SOD (PORCINE) 5000UNITS/ML 1ML VIAL/SYRINGE SC SCH ×3 (05:42→21:00)
--- NOTE | 2020-11-29 07:33 | ECGEPIP ---
[facility] - ED Test Date: 2020-11-28 Pat Name: CLAUDINE LOPEZ Department: Room: - Gender: Female [employer]: AUSTYN : 1960 Requested By: DOMINGO YUEN Order Number: [id number] Reading MD: Markus Slade Measurements Intervals [place] Rate: 104 P: 86 NM: 162 QRS: 85 QRSD: 88 T: 91 QT: 370 QTc: 486 Interpretive Statements Sinus tachycardia Possible Left atrial enlargement Marked ST abnormality, possible inferior subendocardial injury NO PRIORS FOR COMPARISON Electronically Signed on 11-29-2020 7:32:55 EDT by Markus Slade
[2020-11-29] MEDS: LEVEMIR (INSULIN DETEMIR) 1 UNITS/0.01ML SC SCH (08:14)
[2020-11-29 09:12] LABS: VENOUS BASE EXCESS -2.2 (-2.0-2.0); VENOUS HCO3 21.4 MEQ/L (23.0-27.0); VENOUS O2 SATURATION 98.3 % (60.0-80.0); VENOUS PARTIAL PRESSURE CO2 32.6 mmHg (38.0-50.0); VENOUS PARTIAL PRESSURE O2 109.5 mmHg (30.0-50.0); VENOUS PH 7.435 UNITS (7.330-7.430); VENOUS STANDARD HCO3 22.7 MEQ/L; VENOUS TOTAL CO2 22.4 MEQ/L (24.0-28.0)
[2020-11-29] MEDS ORDERED: ACYC1TAB PO (09:39)
[2020-11-29] MEDS ORDERED: ATOR1TAB19 PO (09:39)
[2020-11-29] MEDS ORDERED: TRAZ-257 PO (09:39)
[2020-11-29] MEDS ORDERED: PREG50CA2 PO (09:39)
[2020-11-29] MEDS ORDERED: HOME MED LIST COMPLETE! XX SCH (09:45)
[2020-11-29 09:47] LABS: OSMOLALITY SERUM 314 MOSM/KG (275-295)
[2020-11-29 09:49] LABS: BLOOD UREA NITROGEN 39 MG/DL (7-18); CALCIUM LEVEL 9.1 MG/DL (8.5-10.1); CARBON DIOXIDE LEVEL 24 MEQ/L (21-32); CHLORIDE LEVEL 116 MEQ/L (98-107); CREATININE FOR GFR 0.93 MG/DL (0.55-1.30); GLOMERULAR FILTRATION RATE > 60.0 (>51); GLUCOSE, FASTING 189 MG/DL (70-100); PHOSPHORUS LEVEL 2.2 MG/DL (2.5-4.9); POTASSIUM SERUM 3.5 MEQ/L (3.5-5.1); SODIUM LEVEL 146 MEQ/L (136-145)
[2020-11-29] MEDS ORDERED: GLUCAGON INJ 1MG VIAL SC PRN (10:30)
[2020-11-29] MEDS ORDERED: DEXTROSE 50% 50 ML SYRINGE IV PRN (10:30)
[2020-11-29] MEDS ORDERED: GLUCOSE 4GM CHEW TABLET PO PRN (10:30)
[2020-11-29] MEDS: HumaLOG INSULIN (NovoLOG) PER UNIT SC SCH ×3 (12:00→20:55)
--- NOTE | 2020-11-29 13:59 | IPNPDOC ---
Text Note Date of Service The patient was seen on 11/29/20. NOTE SUBJECTIVE: -Resolved N/V, asking for food, unfortunately was not bridged overnight and will need 2h of overlap with long acting insulin and will likely have food at lunch time OBJECTIVE VITAL SIGNS: see below GENERAL APPEARANCE: NAD HEENT: NCAT, EOMI, MMM, anicteric CARDIOVASCULAR: RRR, no m/r/g LUNGS: CTAB ABDOMEN: Normoactive bowel sounds, no hepatosplenomegaly, nontender MUSCULOSKELETAL: 5/5 strength throughout with full range of motion EXTREMITIES: WWP, 2+ DP pulses, no LE edema NEUROLOGICAL: CN3-12 intact, grossly nonfocal examination PSYCHIATRIC: AOx3 LABORATORY DATA: reviewed. WBC 22.7 hgb 10.7 platelets 266 Na 148 K 4 Cr 1.06 bicarb 25 Anion gap 6 beta hydroxybutyrate 11.9 BCx - NGTD UA - bland with glucosuria and ketonuria IMAGING: AXR: Frontal view of the chest demonstrates no acute cardiopulmonary process. Supine and cross-table lateral views of the abdomen to pelvis demonstrate nonspecific bowel gas pattern without obstruction or perforation. IMPRESSION: Nonspecific bowel gas pattern. MICROBIOLOGY: Please see below. ASSESSMENT: 60 yo W with a history of DM1, anxiety and patient reported history of anorexia, who came into the ED reporting profound nausea and emesis since last night, i/s/o of having run out of her insulin 6d prior to presentation who was admitted for DKA in the setting of medication non-compliance. PLAN: DKA: 2/2 medication having run out and patient did not seek refill, with a history of non-compliance -On insulin gtt, being bridged, to receive 15u levemir shortly (calculated at ~0.25U/kg given that she cannot corroborate her home dosing and her pharmacy has not opened yet) -continue D51/2NS -Q2H FSBG -Q4H BMP, phos -a1c 12.5, poor control, with evidence of non-compliance -NPO until 2h after levemir dose, which is approximately close to early lunch -once taking PO will dc gtt and place on basal bolus regimen with SSI and FSBG AC/HS and transfer out of the ICU. SIRS: leukocytosis, tachycardia -Low suspicion of actual infection, likely reactive leukocytosis i/s/o DKA, will hold antibiotic therapy, UA was bland otherwise, combination C/AXR was negative for acute pathology and BCx x 2 are NGTD. -Resp panel was negative. -Certainly dehydrated, s/p 1.5L in the ED now on 150cc/hr, currently D51/2NS Dehydration: -Hydration plan with fluids per above High anion gap metabolic acidosis: resolved with treatment of DKA and hydration -2/2 DKA, treating DKA per above HIRO: prerenal i/s/o dehydration and DKA, resolved -daily BMP DVT ppx: heparin 5000mg Q8H Dispo: ICU, until bridged to basal bolus dosing and will downgrade to med/surg. Needs PFS consult for non-compliance issues with out of town etc. VS,Fishbone, I+O VS, Fishbone, I+O Laboratory Tests 11/28/20 13:03 11/29/20 00:22 11/29/20 04:34 Vital Signs Date Time Temp Pulse Resp B/P (MAP) Pulse Ox O2 Delivery O2 Flow Rate FiO2 11/29/20 06:00 106 131/69 (89) 98 11/29/20 04:00 99.0 17 11/28/20 23:32 Room Air I&O- Last 24 Hours up to 6 AM 11/29/20 06:00 Intake Total 2281.3 ml Output Total 575 ml Balance 1706.3 ml KRISTIN CHAN MD Nov 29, 2020 07:56
[2020-11-29] MEDS ORDERED: METOCLOPRAMIDE INJ 10MG/2ML VIAL (J2765 PER 1) As Ordered ONE (17:38)
[2020-11-29] MEDS ORDERED: METOCLOPRAMIDE INJ 10MG/2ML VIAL (J2765 PER 1) IV PRN (17:40)
[2020-11-29] MEDS ORDERED: LORazepam 2 MG/ML VIAL IV ONE (18:45)
[2020-11-29] MEDS ORDERED: NICOTINE 14 MG/24 HR TRANSDERMAL TD PRN (23:30)
[2020-11-30] VITALS (7 sets, daily range): BP systolic 133–158; BP diastolic 65–89
[2020-11-30] MEDS: ONDANSETRON 4MG/2ML VIAL IV PRN ×2 (00:05→08:34)
[2020-11-30 04:30] LABS: HEMATOCRIT 29.4 % (36.0-47.0); HEMOGLOBIN 10.1 g/dl (12.0-15.5); MEAN CORPUSCULAR HEMOGLOBIN 29.5 pg (27.0-33.0); MEAN CORPUSCULAR HGB CONC 34.4 g/dl (32.0-36.5); PLATELET COUNT, AUTOMATED 215 10^3/uL (150-450); RED BLOOD COUNT 3.42 10^6/uL (4.00-5.40); WHITE BLOOD COUNT 15.5 10^3/uL (4.0-10.0)
[2020-11-30 04:52] LABS: BLOOD UREA NITROGEN 22 MG/DL (7-18); CALCIUM LEVEL 8.1 MG/DL (8.5-10.1); CARBON DIOXIDE LEVEL 27 MEQ/L (21-32); CHLORIDE LEVEL 112 MEQ/L (98-107); CREATININE FOR GFR 0.67 MG/DL (0.55-1.30); GLOMERULAR FILTRATION RATE > 60.0 (>51); GLUCOSE, FASTING 288 MG/DL (70-100); POTASSIUM SERUM 3.3 MEQ/L (3.5-5.1); SODIUM LEVEL 142 MEQ/L (136-145)
[2020-11-30] MEDS: ACETAMINOPHEN 650MG ER TAB (TYLENOL ARTHRITIS) PO SCH ×3 (05:16→20:15)
[2020-11-30] MEDS: HEPARIN SOD (PORCINE) 5000UNITS/ML 1ML VIAL/SYRINGE SC SCH ×3 (06:00→20:14)
[2020-11-30] MEDS: HumaLOG INSULIN (NovoLOG) PER UNIT SC SCH ×4 (07:30→21:00)
[2020-11-30] MEDS: LEVEMIR (INSULIN DETEMIR) 1 UNITS/0.01ML SC SCH (08:34)
[2020-11-30] MEDS: POTASSIUM CHLORIDE 10MEQ SR TABLET PO ONE ×2 (08:34→09:14)
[2020-11-30] MEDS: FAMOTIDINE 20 MG TAB PO SCH (09:05)
[2020-11-30] MEDS: POTASSIUM CHLORIDE 10% LIQ 20 MEQ/15 ML UDC PO ONE ×2 (10:19→10:22)
[2020-11-30] MEDS ORDERED: KCL 10MEQ/100ML SWI (KRUN) 10 MEQ in IV 1 EA IV SCH (11:00)
[2020-11-30] MEDS ORDERED: POTASSIUM CHLORIDE 10MEQ SR TABLET PO ONE (12:30)
--- NOTE | 2020-11-30 14:07 | IPNPDOC ---
Text Note Date of Service The patient was seen on 11/30/20. NOTE SUBJECTIVE: -Had some nausea and dry heaving late afternoon into the evening with associated hypoglycemia due to no PO while on insulin, had to restart on d51/2NS -This morning feels better OBJECTIVE VITAL SIGNS: see below GENERAL APPEARANCE: NAD HEENT: NCAT, EOMI, MMM, anicteric CARDIOVASCULAR: RRR, no m/r/g LUNGS: CTAB ABDOMEN: Normoactive bowel sounds, no hepatosplenomegaly, nontender MUSCULOSKELETAL: 5/5 strength throughout with full range of motion EXTREMITIES: WWP, 2+ DP pulses, no LE edema NEUROLOGICAL: CN3-12 intact, grossly nonfocal examination PSYCHIATRIC: AOx3 LABORATORY DATA: reviewed. WBC 15.5 hgb 10.1 platelets 215 Na 142 K 3.3 Cr 0.67 BCx - NGTD UA - was bland IMAGING: AXR: Frontal view of the chest demonstrates no acute cardiopulmonary process. Supine and cross-table lateral views of the abdomen to pelvis demonstrate nonspecific bowel gas pattern without obstruction or perforation. IMPRESSION: Nonspecific bowel gas pattern. MICROBIOLOGY: Please see below. ASSESSMENT: 60 yo W with a history of DM1, anxiety and patient reported history of anorexia, who came into the ED reporting profound nausea and emesis since last night, i/s/o of having run out of her insulin 6d prior to presentation who was admitted for DKA in the setting of medication non-compliance. PLAN: DKA: 2/2 medication having run out and patient did not seek refill, with a history of non-compliance -s/p insulin gtt, now on 15u levemir daily -Discontinue D51/2NS -ACHS FSBG, SSI -consistent carb diet -a1c 12.5, poor control, with evidence of non-compliance SIRS: leukocytosis, tachycardia -Low suspicion of actual infection, likely reactive leukocytosis i/s/o DKA, will hold antibiotic therapy, UA was bland otherwise, combination C/AXR was negative for acute pathology and BCx x 2 are NGTD. -Resp panel was negative. -Certainly was dehydrated, s/p fluids Dehydration: resolved -s/p fluids High anion gap metabolic acidosis: resolved with treatment of DKA and hydration -2/2 DKA, resolved with treatment HIRO: prerenal i/s/o dehydration and DKA, resolved -daily BMP DVT ppx: heparin 5000mg Q8H Dispo: PCU. Course c/b history of anorexia with episodic poor PO and emesis induction that precipitates glycemic lability. VS,Cony, I+O VS, Riccibone, I+O Laboratory Tests 11/29/20 09:06 11/30/20 03:57 Vital Signs Date Time Temp Pulse Resp B/P (MAP) Pulse Ox O2 Delivery O2 Flow Rate FiO2 11/30/20 04:15 98.2 80 16 156/81 (106) 97 11/30/20 00:09 Room Air I&O- Last 24 Hours up to 6 AM 11/30/20 06:00 Intake Total 2230 ml Output Total 200 ml Balance 2030 ml KRISTIN CHAN MD Nov 30, 2020 08:17
[2020-11-30] MEDS: AMITRIPTYLINE 50 MG TAB PO SCH (20:14)
[2020-12-01] MEDS: ACETAMINOPHEN 650MG ER TAB (TYLENOL ARTHRITIS) PO SCH (04:57)
[2020-12-01] MEDS: HEPARIN SOD (PORCINE) 5000UNITS/ML 1ML VIAL/SYRINGE SC SCH (05:00)
[2020-12-01 06:00] VITALS: BP 138/91
[2020-12-01 06:34] LABS: HEMATOCRIT 35.4 % (36.0-47.0); HEMOGLOBIN 11.8 g/dl (12.0-15.5); MEAN CORPUSCULAR HEMOGLOBIN 29.3 pg (27.0-33.0); MEAN CORPUSCULAR HGB CONC 33.3 g/dl (32.0-36.5); MEAN CORPUSCULAR VOLUME 87.8 fl (80.0-96.0); PLATELET COUNT, AUTOMATED 208 10^3/uL (150-450); RED BLOOD COUNT 4.03 10^6/uL (4.00-5.40); WHITE BLOOD COUNT 10.9 10^3/uL (4.0-10.0)
[2020-12-01 06:52] LABS: BLOOD UREA NITROGEN 24 MG/DL (7-18); CALCIUM LEVEL 8.6 MG/DL (8.5-10.1); CARBON DIOXIDE LEVEL 30 MEQ/L (21-32); CHLORIDE LEVEL 102 MEQ/L (98-107); GLOMERULAR FILTRATION RATE > 60.0 (>51); GLUCOSE, FASTING 533 MG/DL (70-100); POTASSIUM SERUM 4.3 MEQ/L (3.5-5.1); SODIUM LEVEL 138 MEQ/L (136-145)
[2020-12-01] MEDS: HumaLOG INSULIN (NovoLOG) PER UNIT SC SCH ×2 (07:30→12:16)
[2020-12-01] MEDS ORDERED: HumaLOG INSULIN (NovoLOG) PER UNIT SC ONE ×2 (07:30→07:55)
[2020-12-01] MEDS ORDERED: NS 1,000 ML IV ONE (08:00)
[2020-12-01] MEDS: FAMOTIDINE 20 MG TAB PO SCH (08:20)
[2020-12-01] MEDS ORDERED: LEVEMIR (INSULIN DETEMIR) 1 UNITS/0.01ML SC SCH (09:00)
[2020-12-01] MEDS ORDERED: TRES1INJ SC (12:46)
[2020-12-01] MEDS ORDERED: ONDA4TAB6 PO (12:46)
--- NOTE | 2020-12-01 12:54 | IPNPDOC ---
Text Note Date of Service The patient was seen on 12/01/20. NOTE SUBJECTIVE: -Yesterday morning was refusing inhouse food and was hypoglycemic, then family brought in food she prefers and now she is hyperglycemic to 500s. Thankfully N/V has remitted. She really wants to go home today, so we agreed that she would stop drinking glucerna as her hydration fluid of choice and actually drink water, because it resulted in severe hyperglycemia and we will tentatively plan on sending her home later today with a renewal of her tresiba and close PCP follow up. -Otherwise feels ok OBJECTIVE VITAL SIGNS: see below GENERAL APPEARANCE: NAD HEENT: NCAT, EOMI, MMM, anicteric CARDIOVASCULAR: RRR, no m/r/g LUNGS: CTAB ABDOMEN: Normoactive bowel sounds, no hepatosplenomegaly, nontender MUSCULOSKELETAL: 5/5 strength throughout with full range of motion EXTREMITIES: WWP, 2+ DP pulses, no LE edema NEUROLOGICAL: CN3-12 intact, grossly nonfocal examination PSYCHIATRIC: AOx3 LABORATORY DATA: reviewed. WBC 10.9 hgb 11.8 platelets 208 Na 138 K 4.3 Cr 0.7 glucose 533 BCx - NGTD UA - was bland IMAGING: AXR: Frontal view of the chest demonstrates no acute cardiopulmonary process. Supine and cross-table lateral views of the abdomen to pelvis demonstrate nonspecific bowel gas pattern without obstruction or perforation. IMPRESSION: Nonspecific bowel gas pattern. MICROBIOLOGY: Please see below. ASSESSMENT: 60 yo W with a history of DM1, anxiety and patient reported history of anorexia, who came into the ED reporting profound nausea and emesis since last night, i/s/o of having run out of her insulin 6d prior to presentation who was admitted for DKA in the setting of medication non-compliance. PLAN: DKA: 2/2 medication having run out and patient did not seek refill, with a history of non-compliance -s/p insulin gtt, increase levemir from 15 to 20u daily, will increase slowly because her eating habits are labile and cause labile glycemic trends -getting NS 1L -ACHS FSBG, SSI -consistent carb diet -a1c 12.5, poor control, with evidence of non-compliance SIRS: leukocytosis, tachycardia -Low suspicion of actual infection, likely reactive leukocytosis i/s/o DKA, will hold antibiotic therapy, UA was bland otherwise, combination C/AXR was negative for acute pathology and BCx x 2 are NGTD. -Resp panel was negative. -Certainly was dehydrated, s/p fluids Dehydration: resolved -s/p fluids High anion gap metabolic acidosis: resolved with treatment of DKA and hydration -2/2 DKA, resolved with treatment HIRO: prerenal i/s/o dehydration and DKA, resolved -daily BMP DVT ppx: heparin 5000mg Q8H Dispo: Likely home later day. VS,Fishbone, I+O VS, Fishbone, I+O Laboratory Tests 12/01/20 05:56 Vital Signs Date Time Temp Pulse Resp B/P (MAP) Pulse Ox O2 Delivery O2 Flow Rate FiO2 12/01/20 06:00 97.7 95 16 138/91 (107) 96 Room Air I&O- Last 24 Hours up to 6 AM 12/01/20 06:00 Intake Total 2676 ml Output Total 1850 ml Balance 826 ml KRISTIN CHAN MD Dec 01, 2020 08:12
--- NOTE | 2020-12-01 13:06 | DS.PDOC ---
Discharge Summary General Date of Admission Nov 28, 2020 at 16:30 Date of Discharge 12/01/2020 Attending Physician: KRISTIN CHAN MD Discharge Summary PROCEDURES PERFORMED DURING STAY: None ADMITTING DIAGNOSES: DKA DISCHARGE DIAGNOSES: DKA Uncontrolled Type 1 diabetes mellitus with medication non-compliance High anion gap metabolic acidosis i/s/o DKA Prerenal HIRO History of anorexia Anxiety COMPLICATIONS/CHIEF COMPLAINT: Dka, Nausea And Vomiting. HISTORY OF PRESENT ILLNESS: 60 yo W with a history of DM1, anxiety and patient reported history of anorexia, who came into the ED reporting profound nausea and emesis since the night prior to presentation, i/s/o of having run out of her insulin 6d ago and was still to let her PCP know and seek to replenish it. She denied any history of bloody emesis, diarrhea, bright red blood per rectum or melena, fever, chills, chest pain, pleurisy, palpitations, fever, chills, congestion, increased cough or rhinorrhea. HOSPITAL COURSE: In the ED, she was hemodynamically stable. Labs showed leukocytosis to 29.6, Hgb 12.8, platelets 302, glucose 568, beta hydroxybutyrate >46, bicarb of 13, pH 7.25 on ABG, UA with ketone and 3+ glucose, and osmolality of 349. Lactic acid was 1.9, Na 137, K 4.7, BUN 50, Cr 1.26. She was given 1.5L NS bolus, 5u regular insulin bolus and started on an insulin gtt for DKA. She was admitted to the ICU for DKA in the setting of medication non-compliance and was on the insulin gtt on DKA protocol for until the anion gap closed and she was transitioned to subcutaneous insulin with levemir and SSI. She is now being discharged home with a refill of her tresiba and strongly encouraged to follow up with her PCP within the next 7d. She ideally would benefit from a basal bolus approach or an insulin pump, but Ms. Powers is very non-compliant and addition of more checks and medications is likely going to result in high degree of non-compliance or mis- administration that could be deleterious to her health. Will therefore refill the tresiba and keep her on the long acting as she has had since her diagnosis and follow up with PCP and may end up requiring referral to endocrinology. DISCHARGE MEDICATIONS: Please see below. ALLERGIES: Please see below. PHYSICAL EXAMINATION ON DISCHARGE: VITAL SIGNS: Please see below. GENERAL APPEARANCE: NAD HEENT: NCAT, EOMI, MMM, anicteric CARDIOVASCULAR: RRR, no m/r/g LUNGS: CTAB ABDOMEN: Normoactive bowel sounds, no hepatosplenomegaly, nontender MUSCULOSKELETAL: 5/5 strength throughout with full range of motion EXTREMITIES: WWP, 2+ DP pulses, no LE edema NEUROLOGICAL: CN3-12 intact, grossly nonfocal examination PSYCHIATRIC: AOx3 LABORATORY DATA: Please see below. IMAGING: AXR: Frontal view of the chest demonstrates no acute cardiopulmonary process. Supine and cross-table lateral views of the abdomen to pelvis demonstrate nonspecific bowel gas pattern without obstruction or perforation. IMPRESSION: Nonspecific bowel gas pattern. MICROBIOLOGY: Please see below. PROGNOSIS: Good with good medical compliance ACTIVITY: As tolerated DIET: consistent carb DISCHARGE PLAN: home with refill of tresiba DISPOSITION: Home DISCHARGE INSTRUCTIONS: home with refill of tresiba. Please see your PCP within 7d ITEMS TO FOLLOWUP ON ON OUTPATIENT: DM1 glycemic control DISCHARGE CONDITION: Stable TIME SPENT ON DISCHARGE: 43 minutes. Vital Signs/I&Os Vital Signs Date Time Temp Pulse Resp B/P (MAP) Pulse Ox O2 Delivery O2 Flow Rate FiO2 12/01/20 06:00 97.7 95 16 138/91 (107) 96 Room Air I&O- Last 24 Hours up to 6 AM 12/01/20 06:00 Intake Total 2676 ml Output Total 1850 ml Balance 826 ml Laboratory Data Labs 24H Laboratory Tests 2 11/30/20 16:22: Bedside Glucose (Misc Panel) 235H 11/30/20 20:53: Bedside Glucose (Misc Panel) 154H 12/01/20 05:56: Nucleated Red Blood Cells % (auto) 0.0, Anion Gap 6L, Glomerular Filtration Rate > 60.0, Calcium Level 8.6, Magnesium Level 2.0 12/01/20 11:44: Bedside Glucose (Misc Panel) 308H CBC/BMP Laboratory Tests 12/01/20 05:56 FSBS Laboratory Tests Test 11/30/20 16:22 11/30/20 20:53 12/01/20 11:44 Range/Units Bedside Glucose (Misc Panel) 235 154 308 70-105 MG/DL Microbiology Microbiology 11/28/20 Blood Culture - Preliminary, Resulted No Growth after 48 hours. All Specime... 11/28/20 Blood Culture - Preliminary, Resulted No Growth after 48 hours. All Specime... Discharge Medications Scheduled Acyclovir (Acyclovir) 400 Mg Tablet, 400 MG PO BID, (Reported) Amitriptyline HCl (Amitriptyline HCl) 100 Mg Tablet, 100 MG PO QHS, (Reported) Atorvastatin Calcium (Atorvastatin Calcium) 10 Mg Tablet, 10 MG PO 3XW, (Reported) THU/THU/THU Insulin Degludec (Tresiba Flextouch U-200) 200 Unit/1 Ml Insuln.pen, 36 UNITS SC DAILY Pregabalin (Pregabalin) 50 Mg Capsule, 50 MG PO QID, (Reported) Trazodone HCl (Trazodone HCl) 100 Mg Tablet, 100 MG PO QHS, (Reported) Scheduled PRN Ondansetron (Ondansetron Odt) 4 Mg Tab.rapdis, 1 TAB PO Q6-8HP PRN for nausea/vomiting Allergies Coded Allergies: meperidine (Verified Allergy, Unknown, 11/28/20) UNKNOWN KRISTIN CHAN MD Dec 01, 2020 13:06
[2020-12-01 14:00] VITALS: BP 93/61
== END 2020-12-01 15:30 | disposition home or self-care (01) | DRG 420 ==
LOC: EDBD 12:13 → M ED 12:13 → M ED INP 16:30 → ENRESERV 20:50 → M PCU 23:42 → M MSPAV 11-30 14:00
PROVIDERS: ADMIT Internal Medicine; ATTEND Internal Medicine
DX: E10.10 Type 1 diabetes mellitus with ketoacidosis without coma (principal); N17.9 Acute kidney failure, unspecified; E87.2 Acidosis; Z91.14 Patient's other noncompliance with medication regimen; F41.9 Anxiety disorder, unspecified; Z79.899 Other long term (current) drug therapy; Z88.8 Allergy status to other drugs, medicaments and biological substances; F17.210 Nicotine dependence, cigarettes, uncomplicated

== ENCOUNTER 2021-07-26 14:53 | Emergency (ER) | payer OTHER ==
[~2021-07-26] VITALS: Ht 172.7 cm; Wt 59.7 kg
[~2021-07-26 14:53] MED LIST: ACYC1TAB PO; AMIT100TA PO; ATOR1TAB19 PO; LEVO250T3 PO; ONDA4TAB6 PO; PRED10TA2 PO; PREG50CA2 PO; TRAZ-257 PO; TRES1INJ SC
[2021-07-26 16:43] LABS: BASO # 0.1 10^3/uL (0.0-0.2); BASO % 0.5 % (0.0-1.0); EOS # 0.2 10^3/uL (0.0-0.5); EOS % 1.9 % (0.0-3.0); HEMATOCRIT 36.3 % (36.0-47.0); HEMOGLOBIN 12.2 g/dl (12.0-15.5); LYMPH # 2.8 10^3/uL (1.5-5.0); LYMPH % 30.2 % (24.0-44.0); MEAN CORPUSCULAR HEMOGLOBIN 28.6 pg (27.0-33.0); MEAN CORPUSCULAR HGB CONC 33.6 g/dl (32.0-36.5); MEAN CORPUSCULAR VOLUME 85.2 fl (80.0-96.0); MONO # 0.7 10^3/uL (0.0-0.8); MONO % 7.2 % (2.0-8.0); NEUTROPHILS # 5.6 10^3/uL (1.5-8.5); NEUTROPHILS % 59.9 % (36.0-66.0); PLATELET COUNT, AUTOMATED 267 10^3/uL (150-450); RED BLOOD COUNT 4.26 10^6/uL (4.00-5.40); WHITE BLOOD COUNT 9.3 10^3/uL (4.0-10.0)
[2021-07-26 17:01] LABS: CK-MB VALUE MASS 1.9 NG/ML (<3.6); MB/CK RELATIVE INDEX 1.86 (< OR =4)
[2021-07-26 17:04] LABS: INR 0.95; PROTHROMBIN TIME 13.1 SECONDS (12.7-14.5)
[2021-07-26 17:05] LABS: PARTIAL THROMBOPLASTIN TIME 32.4 SECONDS (25.9-37.0)
[2021-07-26 17:09] LABS: ALBUMIN 3.7 GM/DL (3.2-5.2); ALT/SGPT 25 U/L (12-78); BILIRUBIN,DIRECT 0.1 MG/DL (0.0-0.2); BILIRUBIN,TOTAL 0.4 MG/DL (0.2-1.0); BLOOD UREA NITROGEN 16 MG/DL (7-18); CALCIUM LEVEL 9.4 MG/DL (8.5-10.1); CARBON DIOXIDE LEVEL 26 MEQ/L (21-32); CHLORIDE LEVEL 99 MEQ/L (98-107); CREATININE FOR GFR 0.72 MG/DL (0.55-1.30); FREE T4 1.35 NG/DL (0.76-1.46); GLOMERULAR FILTRATION RATE > 60.0 (>51); GLUCOSE, FASTING 248 MG/DL (70-100); LIPASE 90 U/L (73-393); NT-PRO BNP 244 PG/ML (<125); POTASSIUM SERUM 4.5 MEQ/L (3.5-5.1); SODIUM LEVEL 132 MEQ/L (136-145); TOTAL PROTEIN 7.2 GM/DL (6.4-8.2)
[2021-07-26] MEDS ORDERED: ISOVUE-370 76% 100ML VIAL As Ordered ONE (17:46)
[2021-07-26] MEDS ORDERED: METO1TAB87 PO (22:24)
[2021-07-26] MEDS ORDERED: METOPROLOL TART 25 MG TABLET PO ONE (22:25)
[2021-07-26 22:31] VITALS: BP_SYST 103; BP_DIAS 80; BP_DIAS 86
== END 2021-07-26 22:38 | disposition home or self-care (01) ==
LOC: M ED 14:53
DX: I47.9 Paroxysmal tachycardia, unspecified (principal); R05.9 Cough, unspecified; J43.9 Emphysema, unspecified; E10.9 Type 1 diabetes mellitus without complications; E78.5 Hyperlipidemia, unspecified; G47.00 Insomnia, unspecified; F17.200 Nicotine dependence, unspecified, uncomplicated; Z88.8 Allergy status to other drugs, medicaments and biological substances; Z79.899 Other long term (current) drug therapy
CPT/HCPCS: 36415; 71045; 71275; 80048; 80076; 82550; 82553; 83690; 83735; 83880; 84439; 84443; 84484; 85025; 85610; 85730; 87040; 93005; 93041; 94760; 99285; Q9967

== ENCOUNTER 2021-09-18 21:17 | Inpatient (IN) | payer OTHER ==
[~2021-09-18] VITALS: Ht 172.7 cm; Wt 44.5 kg
[~2021-09-18 21:17] MED LIST changes: +LEVO1TAB38 PO; -LEVO250T3 PO; +METO1TAB87 PO
[2021-09-18] MEDS ORDERED: NS 1,000 ML IV ONE (21:40)
[2021-09-18 21:47] LABS: BASO # 0.1 10^3/uL (0.0-0.2); BASO % 0.6 % (0.0-1.0); HEMATOCRIT 39.5 % (36.0-47.0); HEMOGLOBIN 12.5 g/dl (12.0-15.5); LYMPH # 1.1 10^3/uL (1.5-5.0); LYMPH % 9.8 % (24.0-44.0); MEAN CORPUSCULAR HGB CONC 31.6 g/dl (32.0-36.5); MEAN CORPUSCULAR VOLUME 91.6 fl (80.0-96.0); MONO # 0.7 10^3/uL (0.0-0.8); MONO % 5.9 % (2.0-8.0); NEUTROPHILS # 9.7 10^3/uL (1.5-8.5); NEUTROPHILS % 83.3 % (36.0-66.0); PLATELET COUNT, AUTOMATED 291 10^3/uL (150-450); RED BLOOD COUNT 4.31 10^6/uL (4.00-5.40); WHITE BLOOD COUNT 11.7 10^3/uL (4.0-10.0)
[2021-09-18 21:51] LABS: VENOUS BASE EXCESS -11.8 (-2.0-2.0); VENOUS HCO3 14.6 MEQ/L (23.0-27.0); VENOUS O2 SATURATION 73.5 % (60.0-80.0); VENOUS PARTIAL PRESSURE CO2 35.1 mmHg (38.0-50.0); VENOUS PARTIAL PRESSURE O2 40.6 mmHg (30.0-50.0); VENOUS PH 7.238 UNITS (7.330-7.430); VENOUS STANDARD HCO3 14.9 MEQ/L; VENOUS TOTAL CO2 15.7 MEQ/L (24.0-28.0)
[2021-09-18] MEDS ORDERED: HumuLIN R (REGULAR) INSULIN (NovoLIN R) **100U/ML** PER UNIT IV ONE (22:00)
[2021-09-18 22:23] LABS: OSMOLALITY SERUM 348 MOSM/KG (275-295)
[2021-09-18 22:26] LABS: RSV AMPLIFICATION NEGATIVE (NEGATIVE)
[2021-09-18 22:29] LABS: ACETONE/KETONE > 46.00 MG/DL (<2.81); ALBUMIN 3.5 GM/DL (3.2-5.2); ALT/SGPT 16 U/L (12-78); BILIRUBIN,DIRECT < 0.1 MG/DL (0.0-0.2); BILIRUBIN,TOTAL 0.4 MG/DL (0.2-1.0); BLOOD UREA NITROGEN 31 MG/DL (7-18); CALCIUM LEVEL 9.3 MG/DL (8.5-10.1); CARBON DIOXIDE LEVEL 18 MEQ/L (21-32); CHLORIDE LEVEL 98 MEQ/L (98-107); CREATININE FOR GFR 1.44 MG/DL (0.55-1.30); GLOMERULAR FILTRATION RATE 39.7 (>51); GLUCOSE, FASTING 999 MG/DL (70-100); LIPASE 69 U/L (73-393); MAGNESIUM LEVEL 2.6 MG/DL (1.8-2.4); POTASSIUM SERUM 4.6 MEQ/L (3.5-5.1); SODIUM LEVEL 134 MEQ/L (136-145); TOTAL PROTEIN 6.9 GM/DL (6.4-8.2)
[2021-09-18] MEDS ORDERED: INSULIN REGULAR IN 0.9 % NACL 100 UNIT in IV 1 EA IV SCH ×2 (22:40)
[2021-09-18] MEDS ORDERED: INSULIN IV RATE CHANGE DOCUMENTATION ML/HR XX SCH (22:40)
[2021-09-18] MEDS ORDERED: ONDANSETRON 4MG 2ML VIAL IV ONE (22:45)
[2021-09-18] MEDS ORDERED: LORazepam 1 MG TAB PO ONE (22:50)
[2021-09-18] MEDS ORDERED: HOME MED LIST COMPLETE! XX SCH (23:45)
[2021-09-18] MEDS ORDERED: TRES1INJ SC (23:45)
[2021-09-18] MEDS ORDERED: METO25TA4 PO (23:45)
[2021-09-19] VITALS (11 sets, daily range): BP systolic 114–155; BP diastolic 56–84
[2021-09-19] MEDS ORDERED: NS 1,000 ML IV SCH (00:25)
[2021-09-19] MEDS ORDERED: ALBUTEROL 90 MCG/ACT 8GM HFA INHALER INH PRN (00:25)
[2021-09-19] MEDS ORDERED: NS 1,000 ML IV ONE (00:25)
[2021-09-19] MEDS ORDERED: INSULIN REGULAR IN 0.9 % NACL 100 UNIT in IV 1 EA IV SCH ×2 (00:25)
[2021-09-19 01:09] LABS: BEDSIDE GLUCOSE CONFIRMATION 619 MG/DL (LESS THAN 200); GLUCOSE,RANDOM 619 MG/DL (LESS THAN 200)
[2021-09-19 01:26] LABS: CALCIUM LEVEL 9.1 MG/DL (8.5-10.1); CREATININE FOR GFR 1.19 MG/DL (0.55-1.30); GLOMERULAR FILTRATION RATE 49.4 (>51); PHOSPHORUS LEVEL 2.4 MG/DL (2.5-4.9); POTASSIUM SERUM 4.2 MEQ/L (3.5-5.1)
[2021-09-19] MEDS: INSULIN IV RATE CHANGE DOCUMENTATION ML/HR XX SCH ×5 (01:42→07:12)
[2021-09-19 03:30] LABS: CALCIUM LEVEL 8.5 MG/DL (8.5-10.1); CREATININE FOR GFR 1.06 MG/DL (0.55-1.30); GLOMERULAR FILTRATION RATE 56.5 (>51); PHOSPHORUS LEVEL 1.6 MG/DL (2.5-4.9); POTASSIUM SERUM 3.5 MEQ/L (3.5-5.1)
[2021-09-19] MEDS ORDERED: HEPARIN SOD (PORCINE) 5000UNITS/ML 1ML VIAL/SYRINGE SC SCH (06:00)
[2021-09-19] MEDS ORDERED: POTASSIUM PHOSPHATE INJ 15 MMOL in D5W 250 ML IV ONE (07:00)
[2021-09-19] MEDS ORDERED: PILL CUTTER 1 EACH XX PRN (07:55)
[2021-09-19 08:08] LABS: BLOOD UREA NITROGEN 21 MG/DL (7-18); CALCIUM LEVEL 8.7 MG/DL (8.5-10.1); CARBON DIOXIDE LEVEL 25 MEQ/L (21-32); CHLORIDE LEVEL 116 MEQ/L (98-107); GLOMERULAR FILTRATION RATE > 60.0 (>51); GLUCOSE, FASTING 117 MG/DL (70-100); PHOSPHORUS LEVEL 2.2 MG/DL (2.5-4.9); POTASSIUM SERUM 3.6 MEQ/L (3.5-5.1); SODIUM LEVEL 145 MEQ/L (136-145)
[2021-09-19] MEDS ORDERED: GLUCOSE 4GM CHEW TABLET PO PRN (08:55)
[2021-09-19] MEDS ORDERED: DEXTROSE 50% 50 ML SYRINGE IV PRN (08:55)
[2021-09-19] MEDS: MULTIVITAMINS/MINERALS THERAP 1 TAB PO SCH (08:55)
[2021-09-19] MEDS ORDERED: GLUCAGON INJ 1MG VIAL SC PRN (08:55)
[2021-09-19] MEDS: METOPROLOL TART 25 MG TABLET PO SCH ×2 (08:56→21:33)
[2021-09-19] MEDS: THIAMINE 100 MG TAB PO SCH (08:56)
[2021-09-19] MEDS: D5W/0.45% SODIUM CHLORIDE 1,000 ML IV SCH ×2 (08:57→18:00)
[2021-09-19] MEDS: LEVEMIR (INSULIN DETEMIR) 1 UNITS/0.01ML SC SCH (08:57)
[2021-09-19 10:10] LABS: ABG BASE EXCESS -0.7 (-2.0-2.0); ABG HCO3 24.3 MEQ/L (22.0-26.0); ABG O2 SATURATION 96.3 % (95.0-99.0); ABG PARTIAL PRESSURE CO2 41.7 mmHg (35.0-45.0); ABG PARTIAL PRESSURE O2 81.7 mmHg (75.0-100.0); ABG STANDARD HCO3 23.9 MEQ/L (22.0-26.0); ABG TOTAL CO2 25.6 MEQ/L (22.0-29.0); ABG pH (ARTERIAL) 7.384 UNITS (7.350-7.450)
[2021-09-19 11:39] LABS: BLOOD UREA NITROGEN 21 MG/DL (7-18); CALCIUM LEVEL 8.6 MG/DL (8.5-10.1); CARBON DIOXIDE LEVEL 26 MEQ/L (21-32); CHLORIDE LEVEL 112 MEQ/L (98-107); CREATININE FOR GFR 0.74 MG/DL (0.55-1.30); GLOMERULAR FILTRATION RATE > 60.0 (>51); GLUCOSE, FASTING 220 MG/DL (70-100); PHOSPHORUS LEVEL 3.8 MG/DL (2.5-4.9); POTASSIUM SERUM 4.1 MEQ/L (3.5-5.1); SODIUM LEVEL 142 MEQ/L (136-145)
[2021-09-19] MEDS: INSULIN LISPRO (NovoLOG) PER UNIT SC SCH ×2 (12:11→18:00)
[2021-09-19] MEDS: ENOXAPARIN 30MG/0.3ML SYRINGE (J1650 PER 10MG) SC SCH (14:00)
[2021-09-19 14:08] LABS: BASO # 0.1 10^3/uL (0.0-0.2); BASO % 0.5 % (0.0-1.0); EOS # 0.3 10^3/uL (0.0-0.5); HEMATOCRIT 32.5 % (36.0-47.0); HEMOGLOBIN 10.7 g/dl (12.0-15.5); LYMPH # 3.8 10^3/uL (1.5-5.0); MEAN CORPUSCULAR HEMOGLOBIN 28.7 pg (27.0-33.0); MEAN CORPUSCULAR HGB CONC 32.9 g/dl (32.0-36.5); MEAN CORPUSCULAR VOLUME 87.1 fl (80.0-96.0); MONO # 1.2 10^3/uL (0.0-0.8); MONO % 7.8 % (2.0-8.0); NEUTROPHILS # 10.3 10^3/uL (1.5-8.5); NEUTROPHILS % 65.2 % (36.0-66.0); PLATELET COUNT, AUTOMATED 225 10^3/uL (150-450); RED BLOOD COUNT 3.73 10^6/uL (4.00-5.40); WHITE BLOOD COUNT 15.7 10^3/uL (4.0-10.0)
[2021-09-19 17:07] LABS: BLOOD UREA NITROGEN 21 MG/DL (7-18); CALCIUM LEVEL 8.5 MG/DL (8.5-10.1); CARBON DIOXIDE LEVEL 23 MEQ/L (21-32); CHLORIDE LEVEL 111 MEQ/L (98-107); CREATININE FOR GFR 0.79 MG/DL (0.55-1.30); GLOMERULAR FILTRATION RATE > 60.0 (>51); GLUCOSE, FASTING 267 MG/DL (70-100); PHOSPHORUS LEVEL 2.6 MG/DL (2.5-4.9); POTASSIUM SERUM 3.7 MEQ/L (3.5-5.1); SODIUM LEVEL 140 MEQ/L (136-145)
[2021-09-19] MEDS ORDERED: traZODone 100 MG TAB PO SCH (21:00)
[2021-09-19] MEDS ORDERED: AMITRIPTYLINE 50 MG TAB PO SCH (21:00)
[2021-09-19] MEDS ORDERED: INSULIN LISPRO (NovoLOG) PER UNIT SC SCH (21:00)
[2021-09-20] MEDS: D5W/0.45% SODIUM CHLORIDE 1,000 ML IV SCH (03:11)
[2021-09-20 06:00] VITALS: BP 145/82
[2021-09-20] MEDS: MULTIVITAMINS/MINERALS THERAP 1 TAB PO SCH (09:00)
[2021-09-20] MEDS ORDERED: ACETAMINOPHEN 500 MG TAB PO PRN (09:30)
[2021-09-20] MEDS: ENOXAPARIN 30MG/0.3ML SYRINGE (J1650 PER 10MG) SC SCH (09:33)
[2021-09-20] MEDS: THIAMINE 100 MG TAB PO SCH (09:33)
[2021-09-20] MEDS: LEVEMIR (INSULIN DETEMIR) 1 UNITS/0.01ML SC SCH (09:34)
[2021-09-20] MEDS: INSULIN LISPRO (NovoLOG) PER UNIT SC SCH ×2 (09:34→11:33)
[2021-09-20 09:37] VITALS: BP 140/81
[2021-09-20] MEDS: METOPROLOL TART 25 MG TABLET PO SCH (09:37)
[2021-09-20 10:01] LABS: BASO # 0.1 10^3/uL (0.0-0.2); BASO % 0.6 % (0.0-1.0); EOS # 0.5 10^3/uL (0.0-0.5); HEMOGLOBIN 11.5 g/dl (12.0-15.5); LYMPH # 2.9 10^3/uL (1.5-5.0); LYMPH % 25.8 % (24.0-44.0); MEAN CORPUSCULAR HEMOGLOBIN 28.8 pg (27.0-33.0); MEAN CORPUSCULAR HGB CONC 32.9 g/dl (32.0-36.5); MEAN CORPUSCULAR VOLUME 87.7 fl (80.0-96.0); MONO # 1.1 10^3/uL (0.0-0.8); MONO % 9.9 % (2.0-8.0); NEUTROPHILS # 6.8 10^3/uL (1.5-8.5); NEUTROPHILS % 59.4 % (36.0-66.0); PLATELET COUNT, AUTOMATED 221 10^3/uL (150-450); RED BLOOD COUNT 3.99 10^6/uL (4.00-5.40); WHITE BLOOD COUNT 11.4 10^3/uL (4.0-10.0)
[2021-09-20 10:32] LABS: ALBUMIN 2.8 GM/DL (3.2-5.2); ALT/SGPT 18 U/L (12-78); BILIRUBIN,TOTAL 0.4 MG/DL (0.2-1.0); BLOOD UREA NITROGEN 9 MG/DL (7-18); CALCIUM LEVEL 8.6 MG/DL (8.5-10.1); CARBON DIOXIDE LEVEL 27 MEQ/L (21-32); CHLORIDE LEVEL 109 MEQ/L (98-107); CREATININE FOR GFR 0.47 MG/DL (0.55-1.30); GLOMERULAR FILTRATION RATE > 60.0 (>51); GLUCOSE, FASTING 137 MG/DL (70-100); MAGNESIUM LEVEL 1.8 MG/DL (1.8-2.4); POTASSIUM SERUM 3.4 MEQ/L (3.5-5.1); SODIUM LEVEL 140 MEQ/L (136-145); TOTAL PROTEIN 5.6 GM/DL (6.4-8.2)
[2021-09-20] MEDS ORDERED: POTASSIUM CHLORIDE 10MEQ SR TABLET PO ONE (11:10)
[2021-09-20] MEDS ORDERED: INSU1MIS20 SC (11:24)
[2021-09-20] MEDS ORDERED: GLUC1TES2 XX (11:24)
[2021-09-20] MEDS ORDERED: ALCOPAD25 TOP (11:24)
[2021-09-20] MEDS ORDERED: PEN1MIS22 SC (11:24)
[2021-09-20] MEDS ORDERED: BLOOKIT21 XX (11:24)
[2021-09-20] MEDS ORDERED: LANC30MI XX (11:24)
[2021-09-20] MEDS ORDERED: NOVOINJ3 SC (11:24)
[2021-09-20] MEDS ORDERED: TRES1INJ SC (11:24)
[2021-09-20] MEDS ORDERED: ATORVASTATIN 10 MG TAB PO SCH (21:00)
== END 2021-09-20 12:40 | disposition home or self-care (01) | DRG 420 ==
LOC: M ED 21:17 → M ED INP 09-19 00:23 → M ICU 09-19 03:00 → M MS5PR 09-19 15:50
PROVIDERS: ADMIT Internal Medicine; ATTEND Family Medicine
DX: E10.10 Type 1 diabetes mellitus with ketoacidosis without coma (principal); J44.9 Chronic obstructive pulmonary disease, unspecified; F50.00 Anorexia nervosa, unspecified; Z91.14 Patient's other noncompliance with medication regimen; F17.210 Nicotine dependence, cigarettes, uncomplicated; Z79.899 Other long term (current) drug therapy; Z79.4 Long term (current) use of insulin; Z88.8 Allergy status to other drugs, medicaments and biological substances; E83.39 Other disorders of phosphorus metabolism; Z68.1 Body mass index [BMI] 19.9 or less, adult

== ENCOUNTER 2022-01-01 12:43 | Emergency (ER) | payer OTHER ==
[~2022-01-01] VITALS: Ht 172.7 cm; Wt 63.0 kg
[~2022-01-01 12:43] MED LIST changes: +ALCOPAD25 TOP; +BLOOKIT21 XX; +GLUC1TES2 XX; +INSU1MIS20 SC; +LANC30MI XX; +METO25TA4 PO; +NOVOINJ3 SC; +PEN1MIS22 SC
[2022-01-01] MEDS ORDERED: BOOSTRIX/ADACEL VACCINE (DIPHTH/PERTUSS/ACELL/TETANUS) 0.5ML SYR IM ONE (13:30)
[2022-01-01] MEDS ORDERED: LIDOCAINE 2% MDV 20ML VIAL SC ONE (14:15)
[2022-01-01] MEDS ORDERED: AUGMENTIN 875 MG TAB PO ONE (14:15)
[2022-01-01] MEDS ORDERED: AMOX875T2 PO (15:35)
[2022-01-01 16:00] VITALS: BP 155/85
[2022-01-01] MEDS ORDERED: HYDR1CAP25 PO (16:29)
== END 2022-01-01 16:00 | disposition home or self-care (01) ==
LOC: M ED 12:43
DX: S01.511A Laceration without foreign body of lip, initial encounter (principal); W54.0XXA Bitten by dog, initial encounter; E11.9 Type 2 diabetes mellitus without complications; Z88.6 Allergy status to analgesic agent; Z79.4 Long term (current) use of insulin; Z79.899 Other long term (current) drug therapy

== ENCOUNTER 2022-01-02 22:24 | Emergency (ER) | payer OTHER ==
[~2022-01-02] VITALS: Ht 172.7 cm; Wt 63.8 kg
[~2022-01-02 22:24] MED LIST changes: +AMOX875T2 PO; +HYDR1CAP25 PO
[2022-01-02 22:26] VITALS: BP 165/88
== END 2022-01-03 00:18 | disposition left against medical advice (07) ==
LOC: M ED 22:24
DX: Z53.21 Procedure and treatment not carried out due to patient leaving prior to being seen by health care provider (principal)

== ENCOUNTER 2022-06-02 23:37 | Emergency (ER) | payer OTHER ==
[~2022-06-02] VITALS: Ht 172.7 cm; Wt 70.0 kg
[2022-06-02] MEDS ORDERED: NS 1,000 ML IV ONE (23:45)
[2022-06-03 00:24] LABS: VENOUS BASE EXCESS -0.6 (-2.0-2.0); VENOUS O2 SATURATION 88.4 % (60.0-80.0); VENOUS PARTIAL PRESSURE CO2 39.2 mmHg (38.0-50.0); VENOUS PARTIAL PRESSURE O2 55.6 mmHg (30.0-50.0); VENOUS PH 7.405 UNITS (7.330-7.430); VENOUS STANDARD HCO3 23.8 MEQ/L; VENOUS TOTAL CO2 25.2 MEQ/L (24.0-28.0)
[2022-06-03] MEDS ORDERED: METOCLOPRAMIDE INJ 10MG/2ML VIAL IV ONE (00:25)
[2022-06-03 00:29] LABS: BASO % 0.4 % (0.0-1.0); EOS # 0.1 10^3/uL (0.0-0.5); EOS % 1.2 % (0.0-3.0); HEMATOCRIT 30.4 % (36.0-47.0); HEMOGLOBIN 10.6 g/dl (12.0-15.5); LYMPH # 1.5 10^3/uL (1.5-5.0); LYMPH % 16.8 % (24.0-44.0); MEAN CORPUSCULAR HEMOGLOBIN 28.4 pg (27.0-33.0); MEAN CORPUSCULAR HGB CONC 34.9 g/dl (32.0-36.5); MEAN CORPUSCULAR VOLUME 81.5 fl (80.0-96.0); MONO # 0.7 10^3/uL (0.0-0.8); MONO % 7.6 % (2.0-8.0); NEUTROPHILS # 6.6 10^3/uL (1.5-8.5); NEUTROPHILS % 73.6 % (36.0-66.0); PLATELET COUNT, AUTOMATED 249 10^3/uL (150-450); RED BLOOD COUNT 3.73 10^6/uL (4.00-5.40); WHITE BLOOD COUNT 8.9 10^3/uL (4.0-10.0)
[2022-06-03 00:52] LABS: LIPASE 22 U/L (12-53)
[2022-06-03 00:53] LABS: CPK CREATINE PHOSPHOKINASE 762 U/L (34-145)
[2022-06-03 00:54] LABS: ALBUMIN 3.3 G/DL (3.2-5.2); ALKALINE PHOSPHATASE 90 U/L (46-116); ALT/SGPT 20 U/L (7.0-40); AST/SGOT 30 U/L (<34); BILIRUBIN,DIRECT 0.1 MG/DL (<0.4); BILIRUBIN,TOTAL 0.4 MG/DL (0.3-1.2); BLOOD UREA NITROGEN 9 MG/DL (9-23); CALCIUM LEVEL 7.9 MG/DL (8.3-10.6); CARBON DIOXIDE LEVEL 26 MMOL/L (20-31); CHLORIDE LEVEL 94 MMOL/L (98-107); CREATININE FOR GFR 0.53 MG/DL (0.55-1.30); GLOMERULAR FILTRATION RATE > 60.0 (>45); GLUCOSE, FASTING 152 MG/DL (74-106); POTASSIUM SERUM 3.3 MMOL/L (3.5-5.1); SODIUM LEVEL 126 MMOL/L (136-145); TOTAL PROTEIN 6.2 G/DL (5.7-8.2)
[2022-06-03 01:13] LABS: INR 1.02; OSMOLALITY SERUM 260 MOSM/KG (275-295); PROTHROMBIN TIME 13.6 SECONDS (12.5-14.5)
[2022-06-03 01:14] LABS: PARTIAL THROMBOPLASTIN TIME 32.6 SECONDS (24.8-34.2)
[2022-06-03 01:45] VITALS: BP 156/84
[2022-06-03 01:47] LABS: CK-MB VALUE MASS 12.9 NG/ML (<3.6)
[2022-06-03 01:49] LABS: MB/CK RELATIVE INDEX 1.64 (< OR =4)
== END 2022-06-03 02:50 | disposition left against medical advice (07) ==
LOC: EDBD 23:37 → M ED 23:37
DX: E87.1 Hypo-osmolality and hyponatremia (principal); E87.6 Hypokalemia; R11.2 Nausea with vomiting, unspecified; E11.9 Type 2 diabetes mellitus without complications; I10 Essential (primary) hypertension; E78.5 Hyperlipidemia, unspecified; J44.9 Chronic obstructive pulmonary disease, unspecified; Z87.891 Personal history of nicotine dependence; Z88.6 Allergy status to analgesic agent; Z79.2 Long term (current) use of antibiotics; Z79.4 Long term (current) use of insulin; Z79.899 Other long term (current) drug therapy
CPT/HCPCS: 80048; 80076; 82010; 82550; 82553; 82803; 83605; 83690; 83930; 84484; 85025; 85610; 85730; 86850; 86900; 86901; 87040; 93041; 96361; 96374; 99284; J2765

== ENCOUNTER 2023-09-19 13:39 | Inpatient (IN) | payer OTHER ==
[~2023-09-19] VITALS: Ht 172.7 cm; Wt 67.2 kg
[~2023-09-19 13:39] MED LIST changes: +ONDA-282 PO; -ONDA4TAB6 PO; -PREG50CA2 PO; +PREG50CA3 PO
[2023-09-19 15:16] LABS: C REACTIVE PROTEIN QUANTITATIV < 0.40 MG/DL (<1.0)
[2023-09-19 15:17] LABS: BASO % 0.7 % (0.0-1.0); EOS # 0.3 10^3/uL (0.0-0.5); EOS % 4.7 % (0.0-3.0); HEMATOCRIT 29.8 % (36.0-47.0); HEMOGLOBIN 9.8 g/dl (12.0-15.5); LYMPH # 2.3 10^3/uL (1.5-5.0); LYMPH % 40.1 % (24.0-44.0); MEAN CORPUSCULAR HEMOGLOBIN 27.7 pg (27.0-33.0); MEAN CORPUSCULAR HGB CONC 32.9 g/dl (32.0-36.5); MEAN CORPUSCULAR VOLUME 84.2 fl (80.0-96.0); MONO # 0.4 10^3/uL (0.0-0.8); MONO % 7.7 % (2.0-8.0); NEUTROPHILS # 2.7 10^3/uL (1.5-8.5); NEUTROPHILS % 46.5 % (36.0-66.0); PLATELET COUNT, AUTOMATED 352 10^3/uL (150-450); RED BLOOD COUNT 3.54 10^6/uL (4.00-5.40); WHITE BLOOD COUNT 5.7 10^3/uL (4.0-10.0)
[2023-09-19 15:18] LABS: BLOOD UREA NITROGEN 15 MG/DL (9-23); CALCIUM LEVEL 8.6 MG/DL (8.3-10.6); CARBON DIOXIDE LEVEL 29 MMOL/L (20-31); CHLORIDE LEVEL 97 MMOL/L (98-107); CREATININE FOR GFR 0.81 MG/DL (0.55-1.30); GLOMERULAR FILTRATION RATE > 60.0 (>45); GLUCOSE, FASTING 244 MG/DL (74-106); POTASSIUM SERUM 5.1 MMOL/L (3.5-5.1); SODIUM LEVEL 129 MMOL/L (136-145)
[2023-09-19 15:53] LABS: ERYTHROCYTE SEDIMENTATION RATE 46 mm/hr (0-30)
[2023-09-19] MEDS: NS 1,000 ML IV ONE (15:55)
[2023-09-19] MEDS ORDERED: ISOVUE-370 76% 100ML VIAL As Ordered ONE (15:58)
[2023-09-19 16:22] LABS: ALBUMIN 3.3 G/DL (3.2-5.2); ALKALINE PHOSPHATASE 133 U/L (46-116); ALT/SGPT 26 U/L (7.0-40); AST/SGOT 25 U/L (<34); BILIRUBIN,DIRECT < 0.1 MG/DL (<0.4); BILIRUBIN,TOTAL 0.2 MG/DL (0.3-1.2); CK-MB VALUE MASS 1.9 NG/ML (<3.6); CPK CREATINE PHOSPHOKINASE 107 U/L (34-145); MB/CK RELATIVE INDEX 1.77 (< OR =4); TOTAL PROTEIN 6.7 G/DL (5.7-8.2)
[2023-09-19 16:39] LABS: THYROID STIMULATING HORMONE 2.363 uIU/ML (0.55-4.78); THYROXINE (T4) 7.8 UG/DL (4.5-10.9)
[2023-09-19 17:03] LABS: FREE THYROXINE INDEX 2.3 % (1.3-4.8); T UPTAKE 29.4 % (22.5-37.0)
[2023-09-19 17:28] LABS: INR 1.01; PARTIAL THROMBOPLASTIN TIME 30.9 SECONDS (24.8-34.2)
[2023-09-19] MEDS ORDERED: HYDR12CA PO (21:46)
[2023-09-19] MEDS ORDERED: LORA1TAB23 PO (21:46)
[2023-09-19] MEDS ORDERED: HOME MED LIST COMPLETE! XX SCH (22:20)
[2023-09-19] MEDS ORDERED: DEXTROSE 50% 50ML SYRINGE IV PRN (22:30)
[2023-09-19] MEDS ORDERED: GLUCAGON INJ 1MG VIAL SC PRN (22:30)
[2023-09-19] MEDS ORDERED: ACETAMINOPHEN TAB 650MG DOSE (2X325MG) PO PRN (23:20)
[2023-09-19] MEDS ORDERED: MAALOX 30 ML SUSP *UDC PO PRN (23:20)
[2023-09-19] MEDS ORDERED: MOM 30ML SUSPENSION UDC PO PRN (23:20)
[2023-09-19 23:24] LABS: HEMOGLOBIN A1c 10.7 % (4.0-6.0)
[2023-09-19 23:31] LABS: OSMOLALITY SERUM 299 MOSM/KG (280-301)
[2023-09-19 23:49] LABS: ACETONE/KETONE 0.33 MMOL/L (0.02-0.27); BLOOD UREA NITROGEN 15 MG/DL (9-23); CARBON DIOXIDE LEVEL 26 MMOL/L (20-31); CHLORIDE LEVEL 99 MMOL/L (98-107); CREATININE FOR GFR 0.77 MG/DL (0.55-1.30); GLOMERULAR FILTRATION RATE > 60.0 (>45); GLUCOSE, FASTING 391 MG/DL (74-106); MAGNESIUM LEVEL 1.7 MG/DL (1.8-2.4); PHOSPHORUS LEVEL 3.6 MG/DL (2.4-5.1); POTASSIUM SERUM 4.2 MMOL/L (3.5-5.1); SODIUM LEVEL 131 MMOL/L (136-145)
[2023-09-20] MEDS: MAGNESIUM OXIDE 400MG TAB (MAG-OX) PO SCH (01:49)
[2023-09-20] MEDS: INSULIN LISPRO (NovoLOG) PER UNIT SC STA (01:50)
[2023-09-20] MEDS: CEFEPIME HCL 2 GM in D5W MINI-BAG PLUS 50 ML IV SCH (01:50)
[2023-09-20 02:26] LABS: INR 1.02; PARTIAL THROMBOPLASTIN TIME 30.2 SECONDS (24.8-34.2); PROTHROMBIN TIME 13.1 SECONDS (12.5-14.5)
[2023-09-20 02:35] VITALS: BP 136/81; TEMP 97.7; O2SAT 98
[2023-09-20] MEDS: LORazepam 1 MG TAB PO PRN (03:33)
[2023-09-20 05:37] VITALS: BP 101/60; TEMP 97.2; O2SAT 98
[2023-09-20] MEDS: GLUCOSE 4 GM CHEW PO PRN (05:54)
[2023-09-20 06:14] LABS: HEMATOCRIT 27.9 % (36.0-47.0); HEMOGLOBIN 9.2 g/dl (12.0-15.5); MEAN CORPUSCULAR HEMOGLOBIN 28.2 pg (27.0-33.0); MEAN CORPUSCULAR VOLUME 85.6 fl (80.0-96.0); PLATELET COUNT, AUTOMATED 335 10^3/uL (150-450); RED BLOOD COUNT 3.26 10^6/uL (4.00-5.40); WHITE BLOOD COUNT 5.8 10^3/uL (4.0-10.0)
[2023-09-20 06:25] LABS: ERYTHROCYTE SEDIMENTATION RATE 26 mm/hr (0-30)
[2023-09-20 06:40] LABS: C REACTIVE PROTEIN QUANTITATIV < 0.40 MG/DL (<1.0)
[2023-09-20 06:53] LABS: PROCALCITONIN 0.04 ng/ml
[2023-09-20 06:58] LABS: ALBUMIN 3.2 G/DL (3.2-5.2); ALKALINE PHOSPHATASE 126 U/L (46-116); ALT/SGPT 23 U/L (7.0-40); AST/SGOT 18 U/L (<34); BILIRUBIN,TOTAL 0.2 MG/DL (0.3-1.2); BLOOD UREA NITROGEN 20 MG/DL (9-23); CALCIUM LEVEL 9.4 MG/DL (8.3-10.6); CARBON DIOXIDE LEVEL 28 MMOL/L (20-31); CHLORIDE LEVEL 102 MMOL/L (98-107); CREATININE FOR GFR 0.81 MG/DL (0.55-1.30); GLOMERULAR FILTRATION RATE > 60.0 (>45); GLUCOSE, FASTING 43 MG/DL (74-106); MAGNESIUM LEVEL 1.8 MG/DL (1.8-2.4); SODIUM LEVEL 135 MMOL/L (136-145); TOTAL PROTEIN 6.3 G/DL (5.7-8.2)
[2023-09-20] MEDS: ENOXAPARIN 40MG/0.4ML SYRINGE (J1650 PER 10MG) SC SCH (08:03)
[2023-09-20] MEDS: DOCUSATE SODIUM 100MG CAPSULE PO SCH (08:04)
[2023-09-20] MEDS: INSULIN LISPRO (NovoLOG) PER UNIT SC SCH ×2 (08:04→21:20)
[2023-09-20] MEDS: DOXYCYCLINE HYCLATE 100MG TABLET PO SCH (08:04)
[2023-09-20 11:22] LABS: OSMOLALITY URINE 155 MOSM/KG (50-1400)
[2023-09-20 11:40] LABS: SODIUM,RANDOM URINE 18 MMOL/L
[2023-09-20 12:00] VITALS: BP 146/77; TEMP 97.7; O2SAT 97
[2023-09-20] MEDS: cefTRIAXone SOD 1 GM in D5W MINI-BAG PLUS 50 ML IV SCH (12:06)
[2023-09-20 20:00] VITALS: BP 148/68; TEMP 98.2; O2SAT 98
[2023-09-20] MEDS: AMITRIPTYLINE 50 MG TAB PO SCH (21:16)
[2023-09-20] MEDS: ATORVASTATIN 10 MG TAB PO SCH (21:16)
[2023-09-20 22:18] VITALS: O2SAT 97
[2023-09-21 03:50] VITALS: BP 136/76; TEMP 97.3; O2SAT 95
[2023-09-21 06:21] LABS: BASO % 0.5 % (0.0-1.0); EOS # 0.3 10^3/uL (0.0-0.5); EOS % 5.7 % (0.0-3.0); HEMATOCRIT 29.6 % (36.0-47.0); HEMOGLOBIN 9.8 g/dl (12.0-15.5); LYMPH # 2.6 10^3/uL (1.5-5.0); LYMPH % 45.7 % (24.0-44.0); MEAN CORPUSCULAR HEMOGLOBIN 28.2 pg (27.0-33.0); MEAN CORPUSCULAR HGB CONC 33.1 g/dl (32.0-36.5); MEAN CORPUSCULAR VOLUME 85.3 fl (80.0-96.0); MONO # 0.5 10^3/uL (0.0-0.8); MONO % 8.5 % (2.0-8.0); NEUTROPHILS # 2.2 10^3/uL (1.5-8.5); NEUTROPHILS % 39.4 % (36.0-66.0); PLATELET COUNT, AUTOMATED 359 10^3/uL (150-450); RED BLOOD COUNT 3.47 10^6/uL (4.00-5.40); WHITE BLOOD COUNT 5.6 10^3/uL (4.0-10.0)
[2023-09-21 06:28] LABS: ERYTHROCYTE SEDIMENTATION RATE 32 mm/hr (0-30)
[2023-09-21 06:38] LABS: C REACTIVE PROTEIN QUANTITATIV < 0.40 MG/DL (<1.0)
[2023-09-21 06:40] LABS: BLOOD UREA NITROGEN 16 MG/DL (9-23); CALCIUM LEVEL 8.8 MG/DL (8.3-10.6); CARBON DIOXIDE LEVEL 27 MMOL/L (20-31); CHLORIDE LEVEL 101 MMOL/L (98-107); CREATININE FOR GFR 0.69 MG/DL (0.55-1.30); GLOMERULAR FILTRATION RATE > 60.0 (>45); GLUCOSE, FASTING 382 MG/DL (74-106); MAGNESIUM LEVEL 1.8 MG/DL (1.8-2.4); POTASSIUM SERUM 4.7 MMOL/L (3.5-5.1); SODIUM LEVEL 131 MMOL/L (136-145)
[2023-09-21] MEDS: INSULIN LISPRO (NovoLOG) PER UNIT SC SCH ×2 (11:57→20:32)
[2023-09-21 12:00] VITALS: BP 159/90; TEMP 97.5; O2SAT 100
[2023-09-21] MEDS ORDERED: PROHANCE 279.3MG/ML 15ML VIAL As Ordered ONE (12:42)
[2023-09-21 19:00] VITALS: BP 139/61; TEMP 97.3; O2SAT 99
[2023-09-21] MEDS: CEFEPIME HCL 2 GM in D5W MINI-BAG PLUS 50 ML IV SCH (19:34)
[2023-09-21 20:20] VITALS: BP 138/60; TEMP 98.1; O2SAT 98
[2023-09-21] MEDS: VANCOMYCIN HCL 750 MG, VIAL MATE ADAPTER 1 EACH in D5W 250 ML IV ONE ×2 (20:25→22:38)
[2023-09-21] MEDS ORDERED: INSULIN LISPRO (NovoLOG) PER UNIT SC SCH (21:00)
[2023-09-22] MEDS: INSULIN LISPRO (NovoLOG) PER UNIT SC ONE (03:33)
[2023-09-22 03:40] VITALS: BP 158/78; TEMP 98.1; O2SAT 98
[2023-09-22] MEDS: VANCOMYCIN HCL 1,000 MG, VIAL MATE ADAPTER 1 EACH in D5W 250 ML IV SCH (04:56)
[2023-09-22 06:13] LABS: BASO % 0.4 % (0.0-1.0); EOS # 0.4 10^3/uL (0.0-0.5); EOS % 5.4 % (0.0-3.0); HEMATOCRIT 28.3 % (36.0-47.0); HEMOGLOBIN 9.5 g/dl (12.0-15.5); LYMPH # 2.7 10^3/uL (1.5-5.0); LYMPH % 37.1 % (24.0-44.0); MEAN CORPUSCULAR HEMOGLOBIN 28.3 pg (27.0-33.0); MEAN CORPUSCULAR HGB CONC 33.6 g/dl (32.0-36.5); MEAN CORPUSCULAR VOLUME 84.2 fl (80.0-96.0); MONO # 0.6 10^3/uL (0.0-0.8); MONO % 7.9 % (2.0-8.0); NEUTROPHILS # 3.6 10^3/uL (1.5-8.5); NEUTROPHILS % 49.1 % (36.0-66.0); PLATELET COUNT, AUTOMATED 366 10^3/uL (150-450); RED BLOOD COUNT 3.36 10^6/uL (4.00-5.40); WHITE BLOOD COUNT 7.3 10^3/uL (4.0-10.0)
[2023-09-22 06:36] LABS: BLOOD UREA NITROGEN 16 MG/DL (9-23); CALCIUM LEVEL 8.7 MG/DL (8.3-10.6); CARBON DIOXIDE LEVEL 26 MMOL/L (20-31); CHLORIDE LEVEL 101 MMOL/L (98-107); CREATININE FOR GFR 0.66 MG/DL (0.55-1.30); GLOMERULAR FILTRATION RATE > 60.0 (>45); GLUCOSE, FASTING 369 MG/DL (74-106); MAGNESIUM LEVEL 1.8 MG/DL (1.8-2.4); POTASSIUM SERUM 4.3 MMOL/L (3.5-5.1); SODIUM LEVEL 134 MMOL/L (136-145)
[2023-09-22] MEDS: LEVEMIR (INSULIN DETEMIR) 1 UNITS/0.01ML SC SCH (08:01)
[2023-09-22] MEDS: INSULIN LISPRO (NovoLOG) PER UNIT SC SCH ×2 (08:01)
[2023-09-22 12:00] VITALS: BP 147/88; TEMP 98.1; O2SAT 99
[2023-09-22 20:00] VITALS: BP 155/90; TEMP 97.3; O2SAT 98
[2023-09-22 22:27] VITALS: BP 142/78
[2023-09-23 04:00] VITALS: BP 150/84; TEMP 97; O2SAT 96
[2023-09-23 07:37] LABS: BASO # 0.1 10^3/uL (0.0-0.2); BASO % 0.9 % (0.0-1.0); EOS # 0.4 10^3/uL (0.0-0.5); EOS % 6.5 % (0.0-3.0); HEMATOCRIT 30.5 % (36.0-47.0); HEMOGLOBIN 10.1 g/dl (12.0-15.5); LYMPH % 30.6 % (24.0-44.0); MEAN CORPUSCULAR HEMOGLOBIN 28.2 pg (27.0-33.0); MEAN CORPUSCULAR HGB CONC 33.1 g/dl (32.0-36.5); MEAN CORPUSCULAR VOLUME 85.2 fl (80.0-96.0); MONO # 0.5 10^3/uL (0.0-0.8); MONO % 7.7 % (2.0-8.0); NEUTROPHILS # 3.6 10^3/uL (1.5-8.5); PLATELET COUNT, AUTOMATED 404 10^3/uL (150-450); RED BLOOD COUNT 3.58 10^6/uL (4.00-5.40); WHITE BLOOD COUNT 6.7 10^3/uL (4.0-10.0)
[2023-09-23 07:49] LABS: BLOOD UREA NITROGEN 9 MG/DL (9-23); CALCIUM LEVEL 9.3 MG/DL (8.3-10.6); CARBON DIOXIDE LEVEL 28 MMOL/L (20-31); CHLORIDE LEVEL 103 MMOL/L (98-107); CREATININE FOR GFR 0.63 MG/DL (0.55-1.30); GLOMERULAR FILTRATION RATE > 60.0 (>45); GLUCOSE, FASTING 350 MG/DL (74-106); MAGNESIUM LEVEL 1.9 MG/DL (1.8-2.4); POTASSIUM SERUM 4.4 MMOL/L (3.5-5.1); SODIUM LEVEL 137 MMOL/L (136-145); VANCOMYCIN RANDOM 13.6 UG/ML
[2023-09-23] MEDS: VANCOMYCIN HCL 1,000 MG, VIAL MATE ADAPTER 1 EACH in D5W 250 ML IV SCH (11:04)
[2023-09-23] MEDS ORDERED: CEFD1CAP9 PO (12:50)
[2023-09-23] MEDS ORDERED: DOXY150C5 PO (12:50)
[2023-09-23] MEDS ORDERED: INSUHUMDS SC (12:50)
[2023-09-23] MEDS ORDERED: TRES100I SC (12:50)
[2023-09-25 02:57] LABS: LYME TOTAL ANTIBODY CIA <= 0.90 Index (<=0.90)
== END 2023-09-23 15:30 | disposition home or self-care (01) | DRG 383 ==
LOC: M ED 13:39 → M ED INP 21:51 → M MSPAV 09-20 02:19
PROVIDERS: ADMIT Family Medicine; ATTEND Hospitalist
DX: L03.116 Cellulitis of left lower limb (principal); E43 Unspecified severe protein-calorie malnutrition; M86.252 Subacute osteomyelitis, left femur; F50.00 Anorexia nervosa, unspecified; E10.41 Type 1 diabetes mellitus with diabetic mononeuropathy; E87.1 Hypo-osmolality and hyponatremia; J44.9 Chronic obstructive pulmonary disease, unspecified; K21.9 Gastro-esophageal reflux disease without esophagitis; N20.0 Calculus of kidney; E78.5 Hyperlipidemia, unspecified; F41.9 Anxiety disorder, unspecified; F32.A Depression, unspecified; Z91.119 Patient's noncompliance with dietary regimen due to unspecified reason; Z79.4 Long term (current) use of insulin; Z79.899 Other long term (current) drug therapy; Z88.8 Allergy status to other drugs, medicaments and biological substances; Z91.148 Patient's other noncompliance with medication regimen for other reason; I44.0 Atrioventricular block, first degree; E10.65 Type 1 diabetes mellitus with hyperglycemia; Z87.891 Personal history of nicotine dependence

== ENCOUNTER 2023-09-25 13:34 | Inpatient (IN) | payer OTHER ==
[~2023-09-25] VITALS: Ht 172.7 cm; Wt 66.2 kg
[~2023-09-25 13:34] MED LIST changes: +CEFD1CAP9 PO; +DOXY150C5 PO; +HYDR12CA PO; +INSUHUMDS SC; +LORA1TAB23 PO; +TRES100I SC
[2023-09-25 16:04] LABS: BASO # 0.1 10^3/uL (0.0-0.2); BASO % 0.8 % (0.0-1.0); EOS # 0.4 10^3/uL (0.0-0.5); EOS % 4.4 % (0.0-3.0); HEMATOCRIT 31.8 % (36.0-47.0); HEMOGLOBIN 10.5 g/dl (12.0-15.5); LYMPH % 35.4 % (24.0-44.0); MEAN CORPUSCULAR HEMOGLOBIN 28.2 pg (27.0-33.0); MEAN CORPUSCULAR VOLUME 85.5 fl (80.0-96.0); MONO # 0.8 10^3/uL (0.0-0.8); MONO % 9.2 % (2.0-8.0); NEUTROPHILS # 4.2 10^3/uL (1.5-8.5); PLATELET COUNT, AUTOMATED 419 10^3/uL (150-450); RED BLOOD COUNT 3.72 10^6/uL (4.00-5.40); WHITE BLOOD COUNT 8.4 10^3/uL (4.0-10.0)
[2023-09-25 16:09] LABS: ERYTHROCYTE SEDIMENTATION RATE 54 mm/hr (0-30)
[2023-09-25] MEDS ORDERED: VANCOMYCIN HCL 1,250 MG in NS 250 ML IV ONE (16:20)
[2023-09-25 16:26] LABS: C REACTIVE PROTEIN QUANTITATIV < 0.40 MG/DL (<1.0)
[2023-09-25] MEDS: cefTRIAXone SOD 2 GM in D5W MINI-BAG PLUS 50 ML IV ONE (16:44)
[2023-09-25] MEDS ORDERED: DEXTROSE 50% 50ML SYRINGE IV PRN (16:45)
[2023-09-25] MEDS ORDERED: GLUCOSE 4 GM CHEW PO PRN (16:45)
[2023-09-25] MEDS ORDERED: GLUCAGON INJ 1MG VIAL SC PRN (16:45)
[2023-09-25] MEDS ORDERED: ACETAMINOPHEN TAB 650MG DOSE (2X325MG) PO PRN (17:05)
[2023-09-25] MEDS ORDERED: ONDANSETRON 4MG 2ML VIAL IV PRN (17:05)
[2023-09-25] MEDS ORDERED: PERCOCET 5MG/325MG TAB PO PRN (17:05)
[2023-09-25] MEDS ORDERED: NALOXONE INJ 0.4MG/1ML VIAL IV PRN (17:05)
[2023-09-25 17:06] LABS: BLOOD UREA NITROGEN 19 MG/DL (9-23); CALCIUM LEVEL 9.9 MG/DL (8.3-10.6); CARBON DIOXIDE LEVEL 30 MMOL/L (20-31); CHLORIDE LEVEL 99 MMOL/L (98-107); CREATININE FOR GFR 0.79 MG/DL (0.55-1.30); GLOMERULAR FILTRATION RATE > 60.0 (>45); GLUCOSE, FASTING 98 MG/DL (74-106); POTASSIUM SERUM 3.9 MMOL/L (3.5-5.1); SODIUM LEVEL 134 MMOL/L (136-145)
[2023-09-25] MEDS ORDERED: INSULIN LISPRO (NovoLOG) PER UNIT SC SCH ×2 (17:30→21:00)
[2023-09-25 18:20] VITALS: BP 166/98; TEMP 97.7; O2SAT 100
[2023-09-25] MEDS: INSULIN LISPRO (NovoLOG) PER UNIT SC SCH ×2 (18:35→20:47)
[2023-09-25] MEDS: LACTOBACILLUS ACIDOPHILUS CAP (BACID) PO SCH (18:35)
[2023-09-25] MEDS: VANCOMYCIN HCL 750 MG, VIAL MATE ADAPTER 1 EACH in D5W 250 ML IV ONE (18:37)
[2023-09-25] MEDS ORDERED: TRES100I SC (19:13)
[2023-09-25] MEDS ORDERED: CEFD1CAP9 PO (19:13)
[2023-09-25] MEDS ORDERED: NOVOINJ3 SC (19:13)
[2023-09-25] MEDS ORDERED: DOXY100C3 PO (19:13)
[2023-09-25] MEDS ORDERED: HOME MED LIST COMPLETE! XX SCH (19:15)
[2023-09-25 20:00] VITALS: BP 113/56; TEMP 97.5; O2SAT 98
[2023-09-25] MEDS: AMITRIPTYLINE 50 MG TAB PO SCH (20:46)
[2023-09-25] MEDS: METOPROLOL TART 25 MG TABLET PO SCH (20:47)
[2023-09-25] MEDS: VANCOMYCIN HCL 500 MG in D5W MINI-BAG PLUS 100 ML IV ONE (20:56)
[2023-09-26] MEDS: VANCOMYCIN HCL 1,000 MG, VIAL MATE ADAPTER 1 EACH in D5W 250 ML IV SCH (02:41)
[2023-09-26 06:09] VITALS: BP 111/67; TEMP 97.9; O2SAT 96
[2023-09-26 07:23] LABS: BASO # 0.1 10^3/uL (0.0-0.2); BASO % 1.1 % (0.0-1.0); EOS # 0.4 10^3/uL (0.0-0.5); EOS % 7.5 % (0.0-3.0); HEMOGLOBIN 9.7 g/dl (12.0-15.5); LYMPH # 2.1 10^3/uL (1.5-5.0); LYMPH % 38.1 % (24.0-44.0); MEAN CORPUSCULAR HEMOGLOBIN 28.4 pg (27.0-33.0); MEAN CORPUSCULAR HGB CONC 33.4 g/dl (32.0-36.5); MONO # 0.6 10^3/uL (0.0-0.8); MONO % 10.9 % (2.0-8.0); NEUTROPHILS # 2.4 10^3/uL (1.5-8.5); PLATELET COUNT, AUTOMATED 359 10^3/uL (150-450); RED BLOOD COUNT 3.41 10^6/uL (4.00-5.40); WHITE BLOOD COUNT 5.6 10^3/uL (4.0-10.0)
[2023-09-26 07:54] LABS: BLOOD UREA NITROGEN 19 MG/DL (9-23); CALCIUM LEVEL 9.3 MG/DL (8.3-10.6); CARBON DIOXIDE LEVEL 27 MMOL/L (20-31); CHLORIDE LEVEL 101 MMOL/L (98-107); CREATININE FOR GFR 0.76 MG/DL (0.55-1.30); GLOMERULAR FILTRATION RATE > 60.0 (>45); GLUCOSE, FASTING 318 MG/DL (74-106); POTASSIUM SERUM 4.4 MMOL/L (3.5-5.1); SODIUM LEVEL 133 MMOL/L (136-145)
[2023-09-26] MEDS: LEVEMIR (INSULIN DETEMIR) 1 UNITS/0.01ML SC SCH (08:40)
[2023-09-26] MEDS ORDERED: LEVEMIR (INSULIN DETEMIR) 1 UNITS/0.01ML SC SCH (09:00)
[2023-09-26 09:30] LABS: VANCOMYCIN RANDOM 25.7 UG/ML
[2023-09-26 12:23] VITALS: BP 150/80; TEMP 97; O2SAT 97
[2023-09-26] MEDS: cefTRIAXone SOD 2 GM in D5W MINI-BAG PLUS 50 ML IV SCH (16:46)
[2023-09-26] MEDS: VANCOMYCIN HCL 750 MG, VIAL MATE ADAPTER 1 EACH in D5W 250 ML IV SCH (17:29)
[2023-09-26] MEDS: ATORVASTATIN 10 MG TAB PO SCH (20:56)
[2023-09-26 21:00] VITALS: BP 152/83; TEMP 97.9; O2SAT 100
[2023-09-27] MEDS: LORazepam 1 MG TAB PO PRN (02:36)
[2023-09-27 05:46] VITALS: BP 114/64; TEMP 97; O2SAT 97
[2023-09-27 08:52] VITALS: BP 142/77
[2023-09-27] MEDS: LEVEMIR (INSULIN DETEMIR) 1 UNITS/0.01ML SC SCH (08:53)
[2023-09-27 09:48] LABS: BASO % 0.7 % (0.0-1.0); EOS # 0.3 10^3/uL (0.0-0.5); EOS % 5.1 % (0.0-3.0); HEMATOCRIT 28.5 % (36.0-47.0); HEMOGLOBIN 9.7 g/dl (12.0-15.5); LYMPH # 1.5 10^3/uL (1.5-5.0); LYMPH % 24.3 % (24.0-44.0); MEAN CORPUSCULAR VOLUME 85.3 fl (80.0-96.0); MONO # 0.6 10^3/uL (0.0-0.8); MONO % 10.2 % (2.0-8.0); NEUTROPHILS # 3.6 10^3/uL (1.5-8.5); NEUTROPHILS % 59.4 % (36.0-66.0); PLATELET COUNT, AUTOMATED 373 10^3/uL (150-450); RED BLOOD COUNT 3.34 10^6/uL (4.00-5.40); WHITE BLOOD COUNT 6.1 10^3/uL (4.0-10.0)
[2023-09-27 10:09] LABS: CHOLESTEROL RISK RATIO 2.83 (<5); LDL CHOLESTEROL 101.2 MG/DL (<100)
[2023-09-27 10:10] LABS: BLOOD UREA NITROGEN 15 MG/DL (9-23); CARBON DIOXIDE LEVEL 27 MMOL/L (20-31); CHLORIDE LEVEL 100 MMOL/L (98-107); CREATININE FOR GFR 0.72 MG/DL (0.55-1.30); GLOMERULAR FILTRATION RATE > 60.0 (>45); GLUCOSE, FASTING 236 MG/DL (74-106); POTASSIUM SERUM 4.2 MMOL/L (3.5-5.1); SODIUM LEVEL 132 MMOL/L (136-145)
[2023-09-27 10:12] LABS: THYROID STIMULATING HORMONE 3.341 uIU/ML (0.55-4.78)
[2023-09-27 10:22] LABS: HEMOGLOBIN A1c 10.6 % (4.0-6.0)
[2023-09-27 11:57] VITALS: BP 126/67; TEMP 97.7; O2SAT 100
[2023-09-27] MEDS ORDERED: CEFA500C2 PO (12:06)
[2023-09-27] MEDS ORDERED: ZYVO1TAB PO (12:06)
[2023-09-27] MEDS ORDERED: BACI1CAP PO (12:06)
== END 2023-09-27 13:33 | disposition home or self-care (01) | DRG 383 ==
LOC: M ED 13:34 → M ED INP 16:44 → M MS5PR 18:15
PROVIDERS: ADMIT General Practice; ATTEND General Practice
DX: L03.116 Cellulitis of left lower limb (principal); E43 Unspecified severe protein-calorie malnutrition; E10.42 Type 1 diabetes mellitus with diabetic polyneuropathy; F50.00 Anorexia nervosa, unspecified; J44.9 Chronic obstructive pulmonary disease, unspecified; E78.5 Hyperlipidemia, unspecified; F41.9 Anxiety disorder, unspecified; F32.A Depression, unspecified; E06.3 Autoimmune thyroiditis; K21.9 Gastro-esophageal reflux disease without esophagitis; M54.9 Dorsalgia, unspecified; G89.29 Other chronic pain; Z87.891 Personal history of nicotine dependence; Z79.4 Long term (current) use of insulin; Z79.2 Long term (current) use of antibiotics; Z79.899 Other long term (current) drug therapy; Z88.8 Allergy status to other drugs, medicaments and biological substances